=== PATIENT | female | born 1990 | race Caucasian/White ===

== ENCOUNTER 2018-01-22 01:15 | Inpatient (IN) | payer MEDICAID ==
[2018-01-22] MEDS ORDERED: LACTATED RINGERS 1,000 ML IV ONE ×4 (01:34→05:52)
[2018-01-22] MEDS ORDERED: OXYTOCIN/SODIUM CHLORIDE 500 ML IV ONE ×2 (01:34→03:52)
[2018-01-22] MEDS ORDERED: SODIUM CHLORIDE FLUSH 0.9% 10 ML SYRINGE ONE ×2 (01:35→11:23)
[2018-01-22] MEDS ORDERED: SODIUM CHLORIDE FLUSH 0.9% 10 ML SYRINGE IVP PRN (01:37)
--- NOTE | 2018-01-22 01:47 | HISTORY & PHYSICAL EXAMINATION ---
Admit History - Instructions Match-[employer] [place]/Slash: -Left hand click circles element as positive or present. -Right hand click slashes element as negative or not present. - Visit Reason Visit Reason: Contractions - : 8 Parity: 3 Premature: 1 Ectopic: 0 : 5 Care: positive: [facility] Risk/History: positive: labor <37 weeks Complications This : positive: None Smoking Status: Never smoker - Mother's Labs Mother's Blood Type: positive: A Mother's RH: positive: Positive GBS: positive: Group B Step Negative Rubella Status: positive: Immune Meds/Allgy - Home Medications Home Medications: Ambulatory Orders Medication Instructions Recorded Confirmed Amoxicillin 500 mg PO TID 10 Days capsule 08/17/15 Anxiety Med 08/17/15 Depression Med 08/17/15 predniSONE [Deltasone] 40 mg PO DAILY 5 Days tablet 08/17/15 - Allergies Allergies/Adverse Reactions: Allergies Allergy/AdvReac Type Severity Reaction Status Date / Time Sulfa (Sulfonamide Allergy Severe Rash Verified 06/25/13 09:27 Antibiotics) Review of Systems - Constitutional Constitutional: reports: Fatigue. denies: Fever, Chills - Cardiovascular Cariovascular: denies: Irregular heart rate, Palpitations, Chest pain, Edema - Respiratory Respiratory: denies: Cough, Wheezing, SOB at rest, SOB with exertion - Gastrointestinal Gastrointestinal: reports: Abdominal pain (uterine contractions x2 hours). denies: Constipation, Diarrhea, Change in bowel habits, Nausea, Vomiting - Genitourinary Genitourinary: reports: Frequency, Urgency. denies: Dysuria, Hematuria - Musculoskeletal Musculoskeletal: denies: Muscle pain, Back pain, Muscle aches - Integumentary Integumentary: denies: Rash, Pruritis, Lesions - Neurological Neurological: denies: General weakness, Focal weakness, Headache, Dizziness, Numbness, Abnormal gait - Psychiatric Psychiatric: denies: Depression, Anxiety - All Other Systems All Other Systems: reports: Reviewed and negative Physical - Abdominal Exam Contraction Frequency (min/apart): 2 Contraction Intensity: positive: Mild to moderate Uterine Resting Tone: positive: Soft - Monitoring Heart Rate Baseline: 135 Strip Review: positive: Category I - Presentation Presentation: positive: Vertex - Vaginal Exam Membranes: positive: Membranes ruptured Dilation (in cm): 10 Effacement (%): 100 Station: positive: 0 (per RN) Cervical Position: positive: Anterior - Speculum Exam Speculum Exam Performed: positive: No Findings: positive: Gross leak - Other Notes Labor Progress Note/Additional Text: Ada Pompa is a 27 y/o who presents w/ complaint of intense uterine contractions & LOF x2 hours. She has a hx of precipitous deliveries & a hx of PROM w/ PTD x1. She has been receiving care intermittently secondary to social dysfunction, but she has gotten care consistently from 30 weeks until now. Her ANGEL by first trimester US is 01/31/2018. She denies any complications during this & none are reflected in the records received from [facility] , where she has received the majority of her care. She denies significant medical hx. Her early chart was reviewed Reviewed chart: Records from [facility]. , LMP 02/23/2017, ANGEL 01/31/2018 (U/S). A pos. Visits 14w2d, 108/60. 08/31/2017 18w1d, 112/72. PMH: Anemia, depression. PSH: Foot. G6, TAB 1, Full term 3, SAB 2, living 3. 06/30/2017 U/S: LMP 04/15/2017 with EGA 10w6d, EDC 01/20/2018. U/S: EGA 9w2d, EDC 01/31/2018. CRL 2.53 cm, cervix length 4.08 cm. 06/30/2017 visit for confirmation of . Unintended . H/O 3 vaginal del. First PPROM at 34 wks. Induced, 14 hour labor with distress. born without a pulse and resuscitated. Baby 2 weeks in NICU; septic from chorio but not certain. 2nd preg complicated by PTL at 36 wks. PROM and delivered 45 min later. 3rd preg term vag del at 37 wks after spontaneous labor. No supplemental PG in any pregnancies. PMH: Depression managed without meds. Change EDC to 01/31/2018 based on U/S. 06/30/2017 GC/CT neg. 08/03/2017 labs: WBC 9.5, H/H 11.3/33.8, PLT 261, Ab screen neg, A pos, RPR NR, Hep B neg, rub imm, HIV NR. QUAD neg x 3. PMH: depression w/o medication PSH: d&C, wisdom teeth, ORIF OBhx: x3, 1 PTD, largest 8#2oz, denies hx of PPH, hx chorio, pt reports she was septic s/p first delivery 10 years ago; TAB x1, SAB x2, all first trimester & w/o complication GYNhx: Hx HPV, Hx chlamydia, Hx trichomonas, most recent pap NILM per pt, gc/ct neg this preg SocHx: unemployed, unpartnered, supported by her mother, Haydee, who is present in the room; denies drugs/etoh/tobacco PE: GEN: AAOx3, NAD WA gravid female HEENT: Grossly normocephalic, atraumatic RESP: Lungs b/l CTA t/o CARDIAC: RRR nls1s2, no murmur ABD: gravid, frequent uterine contractions, strong, fetus longitudinal, EFW 7#, cephalic presentation : No lesion, LOF, CAF SVE per RN: 10/100/0 MS: FROM t/o, no deformity SKIN: warm, well-perfused, c/d/i, no lesion, multiple tattoos NEURO: no focal deficit PSYCH: Moderately agitated secondary to discomfort, limited conversation, poor historian Plan for Labor - Plan For Labor I expect patient to be DC'd or transferred within 96 hours.: Yes Plan for Labor: 1. Admit 2. Admit labs, IV insert 3. Nitrous per pt request for analgesia/anxiolysis 4. UTOX, Cord tox 5. Anticipate
[2018-01-22] MEDS ORDERED: LACTATED RINGERS 1,000 ML IV SCH (02:00)
[2018-01-22 02:12] LABS: BASOPHILS # (AUTO) 0.1 10^3/uL (0.0-0.1); BASOPHILS % (AUTO) 0.6 %; EOSINOPHILS # (AUTO) 0.1 10^3/uL (0.0-0.7); EOSINOPHILS % (AUTO) 0.7 %; HGB - HEMOGLOBIN 12.6 g/dL (12.0-16.0); LYMPHOCYTES # (AUTO) 2.5 10^3/uL (1.5-3.5); LYMPHOCYTES % (AUTO) 24.2 %; MEAN CORPUSCULAR HGB CONC 34.4 g/dL (32.0-36.0); MEAN CORPUSCULAR VOLUME 87.2 fL (81.0-99.0); MEAN PLATELET VOLUME 10.1 fL (7.9-10.8); MONOCYTES # (AUTO) 0.8 10^3/uL (0.0-1.0); MONOCYTES % (AUTO) 7.6 %; NEUTROPHILS # (AUTO) 6.9 10^3/uL (1.5-6.6); NEUTROPHILS % (AUTO) 66.9 %; PLT - PLATELET COUNT 221 10^3/uL (130-450); RED BLOOD COUNT 4.19 10^6/uL (4.20-5.40); RED CELL DISTRIBUTION WIDTH 14.9 % (12.0-15.0); WHITE BLOOD COUNT 10.3 x10^3/uL (4.8-10.8)
[2018-01-22 02:33] LABS: MUDS CUTOFF CONCENTRATIONS CUTOFF CONC BELOW:
[2018-01-22 02:36] LABS: BILIRUBIN,URINE NEGATIVE (NEGATIVE); GLUCOSE, URINE (UA) NEGATIVE (NEGATIVE); KETONES,URINE (UA) NEGATIVE (NEGATIVE); LEUKOCYTE ESTERASE, URINE NEGATIVE (NEGATIVE); NITRITE,URINE NEGATIVE (NEGATIVE); OCCULT BLOOD,URINE NEGATIVE (NEGATIVE); PROTEIN,URINE NEGATIVE (NEGATIVE); UROBILINOGEN,URINE 0.2 (NORMAL) E.U./dL (NORMAL)
[2018-01-22 02:54] LABS: AMPHETAMINE SCREEN,URINE NEGATIVE (NEGATIVE); BACTERIA,URINE None Seen /HPF (None Seen); BENZODIAZEPINES SCREEN, URINE NEGATIVE (NEGATIVE); CLARITY,URINE CLEAR (CLEAR); COCAINE SCREEN URINE NEGATIVE (NEGATIVE); METHADONE SCREEN, URINE NEGATIVE (NEGATIVE); METHAMPHETAMINES SCREEN, URINE NEGATIVE (NEGATIVE); OPIATE SCREEN, URINE NEGATIVE (NEGATIVE); OXYCODONE SCREEN, URINE NEGATIVE (NEGATIVE); PROPOXYPHENE SCREEN, URINE NEGATIVE (NEGATIVE); RBC,URINE None Seen /HPF (0-5); SQUAMOUS EPITHELIAL CELL,UR FEW Squamous (<= Few); TRICYCLIC ANTIDEPRESSANT,URINE NEGATIVE (NEGATIVE)
[2018-01-22] MEDS ORDERED: HYDROCORTISONE 1% CREAM 28 GM TUBE PR PRN (03:11)
[2018-01-22] MEDS ORDERED: HYDROCORTISONE/PRAMOXINE 10 GM PR PRN (03:11)
[2018-01-22] MEDS ORDERED: WITCH HAZEL/GLYCERIN 1 EACH MED..PAD TOP PRN (03:11)
[2018-01-22] MEDS ORDERED: NITROGLYCERIN SL 0.4 MG TABLET SL PRN (03:11)
[2018-01-22] MEDS ORDERED: OXYTOCIN/SODIUM CHLORIDE 250 ML IV ONE (03:11)
[2018-01-22] MEDS ORDERED: oxyCODONE 5 MG TABLET PO PRN (03:11)
[2018-01-22] MEDS ORDERED: MAGNESIUM HYDROXIDE 2,400 MG/30 ML UDC PO PRN (03:11)
[2018-01-22] MEDS ORDERED: ceFAZolin 3 GM in SODIUM CHLORIDE 0.9% 100ML 100 ML IV ONE (03:14)
--- NOTE | 2018-01-22 03:35 | DELIVERY NOTE ---
Delivery Note - Labor Labor: positive: Spontaneous - Delivery Method Delivery Method: positive: Spontaneous vaginal delivery - Presentation Presentation: positive: Vertex, DEEPTI - right occiput anterior - Nuchal Cord Nuchal Cord: positive: None - Anesthetic Anesthetic Type: - Amniotic Fluid Description Amniotic Fluid Description: positive: Clear - Episiotomy Type Episiotomy Type: positive: None - Laceration Laceration: positive: None - Delivery Outcome Delivery Outcome: positive: Livebirth - [place] : positive: Placed in direct skin contact with mother, Stimulated, Hooker used - Cord Cord: positive: 3 vessels - Placenta Placenta: positive: Retained - Estimated Blood Loss Estimated Blood Loss (in cc): 350 - Post Delivery Events Post Delivery Events: positive: Retained placenta - Delivery Comments (Free Text/Narrative) Delivery Comments (Free Text/Narrative): Ada Pompa is a 27 y/o [id number] who presented @ 38w5d gestation by first trimester US in active, spontaneous labor. She had an uncomplicated course w/ the exception of some sporadic care secondary to relocation. She presented @ 9cm dilated w/ SROM @ 00:00. She progressed to complete dilatation @ 0200, for a total first stage duration of 2 hours. She began pushing w/ spontaneous urge @ 02:10 & delivered a viable female vaginally in DEEPTI position over an intact perineum @ 0240, for a total 2nd stage duration of 30 minutes. FHTs monitored electronically t/o & consistently cat I. vigorous w/ spontaneous, lusty cry. Placed to maternal abdomen for drying/stim. Delayed cord clamping until cessation of pulsation, then cord clamped x2 by cnm, cut by pt's daughter. 3vc noted. Cord blood obtained. Cord segment obtained for cord tox. Active management of the 3rd stage w/ Pitocin in IV fluids. Attempted manual extraction @ 30 minutes s/p delivery w/o success secondary to narrow cervical lumen. Nitroglycerin 0.4mg SL administered & attempted manual extraction again @ 45 minutes s/p delivery w/o success secondary to patient discomfort & persistent placental adherence. Pt utilized self-administered nitrous oxide w/ inadequate pain control. No improvement w/ IV fentanyl. Reviewed clinical scenario w/ pt & indication for operative intervention to facilitate placental extraction. Dr. Alecia MD, MANUFACTURING QUALITY INSPECTOR notified of clinical scenario & requested to present for surgical intervention. Anesthesia & OR team notified. Infant apgars 9/9, weight 9#4oz. Plans to breastfeed.
[2018-01-22] MEDS ORDERED: fentaNYL 100 MCG/2 ML VIAL ONE (03:50)
[2018-01-22] MEDS ORDERED: METHYLERGONOVINE 0.2 MG/ML AMP PO SCH (04:00)
--- NOTE | 2018-01-22 04:01 | PROVIDER PROGRESS NOTE ---
Subjective - Prog Note Date Prog Note Date: 01/22/18 Prog Note Time: 03:57 - Subjective Pt reports feeling: Worse Objective - Vital Signs/Intake & Output Reviewed Vital Signs: Yes Vital Signs: Vital Signs x48h Temp Pulse Resp BP Pulse Ox 01/22/18 01:55 97.8 C H 93 20 109/73 100 - Lab Results Fish Bones: 01/22/18 01:45 Other Labs: Lab Results x24hrs 01/22/18 01/22/18 01/22/18 Range/Units 01:45 01:38 01:38 WBC 10.3 (4.8-10.8) x10^3/uL RBC 4.19 L (4.20-5.40) 10^6/uL Hgb 12.6 (12.0-16.0) g/dL Hct 36.6 L (37.0-47.0) % MCV 87.2 (81.0-99.0) fL MCH 30.0 (27.0-31.0) pg MCHC 34.4 (32.0-36.0) g/dL RDW 14.9 (12.0-15.0) % Plt Count 221 (130-450) 10^3/uL MPV 10.1 (7.9-10.8) fL Neut # (Auto) 6.9 H (1.5-6.6) 10^3/uL Lymph # (Auto) 2.5 (1.5-3.5) 10^3/uL [place] # (Auto) 0.8 (0.0-1.0) 10^3/uL Eos # (Auto) 0.1 (0.0-0.7) 10^3/uL Baso # (Auto) 0.1 (0.0-0.1) 10^3/uL Absolute Nucleated RBC 0.00 x10^3/uL Nucleated RBC % 0.0 /100WBC Urine Color YELLOW Urine Clarity CLEAR (CLEAR) Urine pH 7.0 (5.0-7.5) PH Ur Specific [employer] 1.010 (1.002-1.030) Urine Protein NEGATIVE (NEGATIVE) mg/dL Urine Glucose (UA) NEGATIVE (NEGATIVE) mg/dL Urine Ketones NEGATIVE (NEGATIVE) mg/dL Urine Occult Blood NEGATIVE (NEGATIVE) Urine Nitrite NEGATIVE (NEGATIVE) Urine Bilirubin NEGATIVE (NEGATIVE) Urine Urobilinogen 0.2 (NORMAL) (NORMAL) E.U./dL Ur Leukocyte Esterase NEGATIVE (NEGATIVE) Urine RBC None Seen (0-5) /HPF Urine WBC 4-5 (0-5) /HPF Ur Squamous Epith Cells FEW Squamous (<= Few) Urine Bacteria None Seen (None Seen) /HPF Urine Culture Comments NOT INDICATED Urine Opiates Screen NEGATIVE (NEGATIVE) Ur Oxycodone Screen NEGATIVE (NEGATIVE) Urine Methadone Screen NEGATIVE (NEGATIVE) Ur Propoxyphene Screen NEGATIVE (NEGATIVE) Ur Barbiturates Screen NEGATIVE (NEGATIVE) Ur Tricyclics Screen NEGATIVE (NEGATIVE) Ur Phencyclidine Scrn NEGATIVE (NEGATIVE) Ur Amphetamine Screen NEGATIVE (NEGATIVE) U Methamphetamines Scrn NEGATIVE (NEGATIVE) U Benzodiazepines Scrn NEGATIVE (NEGATIVE) Urine Cocaine Screen NEGATIVE (NEGATIVE) U Cannabinoids Screen NEGATIVE (NEGATIVE) Assessment/Plan - Problem List (1) Retained placenta Impression: Placenta delivered manually following large amount of profuse vaginal bleeding @ 0355, for a total 3rd stage duration of 1 hour, 15 minutes, appears intact, but able to palpate adherent debris w/ manual sweep of uterus & pt's pain too poorly controlled w/ use of inhaled nitrous oxide & IV fentanyl to accurately ensure empty uterine cavity w/o retained products. Methergine 0.2mg IM x1 administered & misoprostol 800mcg SL administered, bimanual compression performed to firm LUDA, 2nd IV site initiated, bolus IV fluids & 2nd bag of 30Units of Pitocin in NS hung; stat CBC drawn & crossmatched 2 units of PRBCs for standby. Dr. Alston to bedside to consent patient for D&C. Qualifiers: Retained placenta detail: portions of placenta Qualified Code(s): O73.1 - Retained portions of placenta and membranes, without hemorrhage (2) hemorrhage Impression: presently stable s/p uterotonics & bimanual compression, manual extraction of placenta w/ likely retained fragments; EBL presently 1500mL Qualifiers: hemorrhage type: third-stage Qualified Code(s): O72.0 - Third- stage hemorrhage
[2018-01-22] MEDS ORDERED: METHYLERGONOVINE 0.2 MG/ML AMP IM ONE (04:02)
[2018-01-22] MEDS ORDERED: fentaNYL 100 MCG/2 ML VIAL IVP PRN (04:03)
[2018-01-22] MEDS ORDERED: miSOPROStol 200 MCG TABLET SL ONE (04:03)
[2018-01-22 04:06] LABS: BASOPHILS # (AUTO) 0.1 10^3/uL (0.0-0.1); BASOPHILS % (AUTO) 0.7 %; EOSINOPHILS % (AUTO) 0.2 %; HGB - HEMOGLOBIN 11.3 g/dL (12.0-16.0); LYMPHOCYTES % (AUTO) 15.5 %; MEAN CORPUSCULAR HEMOGLOBIN 29.6 pg (27.0-31.0); MEAN CORPUSCULAR HGB CONC 33.5 g/dL (32.0-36.0); MEAN CORPUSCULAR VOLUME 88.2 fL (81.0-99.0); MEAN PLATELET VOLUME 9.8 fL (7.9-10.8); MONOCYTES # (AUTO) 0.9 10^3/uL (0.0-1.0); MONOCYTES % (AUTO) 6.8 %; NEUTROPHILS # (AUTO) 9.9 10^3/uL (1.5-6.6); NEUTROPHILS % (AUTO) 76.8 %; PLT - PLATELET COUNT 201 10^3/uL (130-450); RED BLOOD COUNT 3.82 10^6/uL (4.20-5.40); WHITE BLOOD COUNT 12.9 x10^3/uL (4.8-10.8)
[2018-01-22] MEDS ORDERED: LACTATED RINGERS 500 ML IV ONE (04:20)
--- NOTE | 2018-01-22 04:28 | OPERATIVE REPORT ---
Operative Report - General Admit Date: 01/22/18 Pre-Op Diagnosis: Retained placental fragments; Associated with bleeding Procedure Performed: Curettage and extraction of placental fragments Post Op Diagnosis: Same as above - Procedure Note Primary Surgeon: John Alston MD, FACOG Anesthesia Provider: Brad Faust MD Anesthesia Technique: Spinal Pathology: Placental specimens sent IV Fluids (mL): 600 Estimated Blood Loss (mL): 200 Urine Output (mL): 150 - Other Other Information/Narrative: At 0325, I was called by Td Estevez CNA informed her patient had a retained placenta is not resolved despite her best efforts over the last hour and that the patient is currently bleeding. Upon my arrival the placenta was in the process of being spontaneously expelled. It was somewhat macerated but appeared mostly intact. On palpation of the uterine anterior there were still fragments present. In order to provide complete assessment and removal of the retained products a curettage with exam under anesthesia was conducted. Exam under anesthesia found the uterus to be firm and 17-16 weeks size. The cervix was completely intact and there were no vaginal lacerations. Curettage revealed yielded a small amount of placental fragments and membranes material. The bleeding markedly improved. Due to the reported 1500 cc blood loss during delivery patient will have serial CBCs. She is currently on Pitocin drip. She received misoprostol 800 mcg in the delivery room.
[2018-01-22] MEDS ORDERED: miSOPROStol 200 MCG TABLET ONE (05:00)
[2018-01-22] MEDS ORDERED: miSOPROStol 100 MCG TABLET ONE (05:13)
[2018-01-22 06:23] LABS: HGB - HEMOGLOBIN 10.6 g/dL (12.0-16.0); MEAN CORPUSCULAR HEMOGLOBIN 29.7 pg (27.0-31.0); MEAN CORPUSCULAR HGB CONC 34.4 g/dL (32.0-36.0); MEAN CORPUSCULAR VOLUME 86.4 fL (81.0-99.0); RED BLOOD COUNT 3.57 10^6/uL (4.20-5.40); RED CELL DISTRIBUTION WIDTH 14.9 % (12.0-15.0); WHITE BLOOD COUNT 22.7 x10^3/uL (4.8-10.8)
[2018-01-22] MEDS: CELECOXIB 100 MG CAPSULE PO SCH ×2 (08:24→21:04)
[2018-01-22] MEDS: DOCUSATE SODIUM 100 MG CAPSULE PO SCH ×2 (08:24→21:04)
[2018-01-22] MEDS: ACETAMINOPHEN 500 MG TABLET PO SCH ×2 (08:24→16:28)
[2018-01-22] MEDS ORDERED: SODIUM CHLORIDE FLUSH 0.9% 10 ML SYRINGE IVP SCH (09:00)
[2018-01-22 10:32] LABS: BASOPHILS # (AUTO) 0.1 10^3/uL (0.0-0.1); BASOPHILS % (AUTO) 0.5 %; HGB - HEMOGLOBIN 9.4 g/dL (12.0-16.0); LYMPHOCYTES # (AUTO) 1.6 10^3/uL (1.5-3.5); LYMPHOCYTES % (AUTO) 11.1 %; MEAN CORPUSCULAR HEMOGLOBIN 29.4 pg (27.0-31.0); MEAN CORPUSCULAR HGB CONC 33.5 g/dL (32.0-36.0); MEAN CORPUSCULAR VOLUME 87.8 fL (81.0-99.0); MEAN PLATELET VOLUME 9.9 fL (7.9-10.8); MONOCYTES # (AUTO) 1.1 10^3/uL (0.0-1.0); MONOCYTES % (AUTO) 7.5 %; NEUTROPHILS # (AUTO) 11.5 10^3/uL (1.5-6.6); NEUTROPHILS % (AUTO) 80.9 %; PLT - PLATELET COUNT 154 10^3/uL (130-450); WHITE BLOOD COUNT 14.2 x10^3/uL (4.8-10.8)
--- NOTE | 2018-01-22 15:17 | PROVIDER PROGRESS NOTE ---
Subjective - Prog Note Date Prog Note Date: 01/22/18 Prog Note Time: 15:00 - Subjective Pt reports feeling: Improved Subjective: Ada is very tired but reports that she is feeling generally well, just exhausted. She states that her pain is presently well-controlled. She is ambulating w/o dizziness or lightheadedness & she denies any SUMNER or SOB. She reports minimal lochia rubra. She is passing flatus & tolerating a regular diet. She is exclusively w/o difficulty & reports 3 previously successful experiences. She is not interested in discussing contraceptive options @ this time & does not know when she will return to work. She reports that she is very tired & would like simply to sleep. Objective - Vital Signs/Intake & Output Reviewed Vital Signs: Yes Vital Signs: Vital Signs x48h Temp Pulse Resp BP Pulse Ox 01/22/18 12:00 37.1 C 66 16 106/54 L 98 01/22/18 09:05 38.5 C H 01/22/18 08:00 38.7 C H 74 14 125/69 95 01/22/18 07:20 37.3 C 84 20 123/65 98 Intake & Output: Intake & Output 01/19/18 01/20/18 01/21/18 01/22/18 23:59 23:59 23:59 23:59 Output Total 800 Balance -800 - Objective General Appearance: positive: No acute distress, Alert Respiratory: positive: Chest non-tender, No respiratory distress, Breath sounds nml Cardiovascular: positive: Regular rate & rhythm, No murmur Abdomen: positive: Non-tender, Other (FF U-2) Skin: positive: Color nml, No rash, Warm, Dry. negative: Pallor Extremities: positive: Non-tender, Full ROM, Nml appearance, No pedal edema. negative: Calf tenderness, Suyapa's sign/cords Neurologic/Psychiatric: positive: Oriented x3, CN's nml (2-12), Motor nml, Sensation nml, Mood/affect nml Comments/Other: breasts b/l s, nt; nipples b/l intact & everted; colostrum readily expressible perineum intact w/o erythema/edema/ecchymosis, minimal lochia rubra - Lab Results Fish Bones: 01/22/18 10:15 Other Labs: Lab Results x24hrs 01/22/18 01/22/18 01/22/18 Range/Units 10:15 06:15 03:56 WBC 14.2 H 22.7 H 12.9 H (4.8-10.8) x10^3/uL RBC 3.20 L 3.57 L 3.82 L (4.20-5.40) 10^6/uL Hgb 9.4 L 10.6 L 11.3 L (12.0-16.0) g/dL Hct 28.1 L 30.8 L 33.7 L (37.0-47.0) % MCV 87.8 86.4 88.2 (81.0-99.0) fL MCH 29.4 29.7 29.6 (27.0-31.0) pg MCHC 33.5 34.4 33.5 (32.0-36.0) g/dL RDW 15.0 14.9 15.0 (12.0-15.0) % Plt Count 154 188 201 (130-450) 10^3/uL MPV 9.9 10.0 9.8 (7.9-10.8) fL Neut # (Auto) 11.5 H 9.9 H (1.5-6.6) 10^3/uL Lymph # (Auto) 1.6 2.0 (1.5-3.5) 10^3/uL [place] # (Auto) 1.1 H 0.9 (0.0-1.0) 10^3/uL Eos # (Auto) 0.0 0.0 (0.0-0.7) 10^3/uL Baso # (Auto) 0.1 0.1 (0.0-0.1) 10^3/uL Absolute Nucleated RBC 0.00 0.00 x10^3/uL Nucleated RBC % 0.0 0.0 /100WBC Urine Color Urine Clarity (CLEAR) Urine pH (5.0-7.5) PH Ur Specific [place] (1.002-1.030) Urine Protein (NEGATIVE) mg/dL Urine Glucose (UA) (NEGATIVE) mg/dL Urine Ketones (NEGATIVE) mg/dL Urine Occult Blood (NEGATIVE) Urine Nitrite (NEGATIVE) Urine Bilirubin (NEGATIVE) Urine Urobilinogen (NORMAL) E.U./dL Ur Leukocyte Esterase (NEGATIVE) Urine RBC (0-5) /HPF Urine WBC (0-5) /HPF Ur Squamous Epith Cells (<= Few) Urine Bacteria (None Seen) /HPF Urine Culture Comments Urine Opiates Screen (NEGATIVE) Ur Oxycodone Screen (NEGATIVE) Urine Methadone Screen (NEGATIVE) Ur Propoxyphene Screen (NEGATIVE) Ur Barbiturates Screen (NEGATIVE) Ur Tricyclics Screen (NEGATIVE) Ur Phencyclidine Scrn (NEGATIVE) Ur Amphetamine Screen (NEGATIVE) U Methamphetamines Scrn (NEGATIVE) U Benzodiazepines Scrn (NEGATIVE) Urine Cocaine Screen (NEGATIVE) U Cannabinoids Screen (NEGATIVE) Blood Type Antibody Screen Crossmatch IS Only 01/22/18 01/22/18 01/22/18 Range/Units 01:45 01:45 01:38 WBC 10.3 (4.8-10.8) x10^3/uL RBC 4.19 L (4.20-5.40) 10^6/uL Hgb 12.6 (12.0-16.0) g/dL Hct 36.6 L (37.0-47.0) % MCV 87.2 (81.0-99.0) fL MCH 30.0 (27.0-31.0) pg MCHC 34.4 (32.0-36.0) g/dL RDW 14.9 (12.0-15.0) % Plt Count 221 (130-450) 10^3/uL MPV 10.1 (7.9-10.8) fL Neut # (Auto) 6.9 H (1.5-6.6) 10^3/uL Lymph # (Auto) 2.5 (1.5-3.5) 10^3/uL [place] # (Auto) 0.8 (0.0-1.0) 10^3/uL Eos # (Auto) 0.1 (0.0-0.7) 10^3/uL Baso # (Auto) 0.1 (0.0-0.1) 10^3/uL Absolute Nucleated RBC 0.00 x10^3/uL Nucleated RBC % 0.0 /100WBC Urine Color YELLOW Urine Clarity CLEAR (CLEAR) Urine pH 7.0 (5.0-7.5) PH Ur Specific [place] 1.010 (1.002-1.030) Urine Protein NEGATIVE (NEGATIVE) mg/dL Urine Glucose (UA) NEGATIVE (NEGATIVE) mg/dL Urine Ketones NEGATIVE (NEGATIVE) mg/dL Urine Occult Blood NEGATIVE (NEGATIVE) Urine Nitrite NEGATIVE (NEGATIVE) Urine Bilirubin NEGATIVE (NEGATIVE) Urine Urobilinogen 0.2 (NORMAL) (NORMAL) E.U./dL Ur Leukocyte Esterase NEGATIVE (NEGATIVE) Urine RBC None Seen (0-5) /HPF Urine WBC 4-5 (0-5) /HPF Ur Squamous Epith Cells FEW Squamous (<= Few) Urine Bacteria None Seen (None Seen) /HPF Urine Culture Comments NOT INDICATED Urine Opiates Screen (NEGATIVE) Ur Oxycodone Screen (NEGATIVE) Urine Methadone Screen (NEGATIVE) Ur Propoxyphene Screen (NEGATIVE) Ur Barbiturates Screen (NEGATIVE) Ur Tricyclics Screen (NEGATIVE) Ur Phencyclidine Scrn (NEGATIVE) Ur Amphetamine Screen (NEGATIVE) U Methamphetamines Scrn (NEGATIVE) U Benzodiazepines Scrn (NEGATIVE) Urine Cocaine Screen (NEGATIVE) U Cannabinoids Screen (NEGATIVE) Blood Type A POSITIVE Antibody Screen NEGATIVE Crossmatch IS Only See Detail 01/22/18 Range/Units 01:38 WBC (4.8-10.8) x10^3/uL RBC (4.20-5.40) 10^6/uL Hgb (12.0-16.0) g/dL Hct (37.0-47.0) % MCV (81.0-99.0) fL MCH (27.0-31.0) pg MCHC (32.0-36.0) g/dL RDW (12.0-15.0) % Plt Count (130-450) 10^3/uL MPV (7.9-10.8) fL Neut # (Auto) (1.5-6.6) 10^3/uL Lymph # (Auto) (1.5-3.5) 10^3/uL [place] # (Auto) (0.0-1.0) 10^3/uL Eos # (Auto) (0.0-0.7) 10^3/uL Baso # (Auto) (0.0-0.1) 10^3/uL Absolute Nucleated RBC x10^3/uL Nucleated RBC % /100WBC Urine Color Urine Clarity (CLEAR) Urine pH (5.0-7.5) PH Ur Specific [place] (1.002-1.030) Urine Protein (NEGATIVE) mg/dL Urine Glucose (UA) (NEGATIVE) mg/dL Urine Ketones (NEGATIVE) mg/dL Urine Occult Blood (NEGATIVE) Urine Nitrite (NEGATIVE) Urine Bilirubin (NEGATIVE) Urine Urobilinogen (NORMAL) E.U./dL Ur Leukocyte Esterase (NEGATIVE) Urine RBC (0-5) /HPF Urine WBC (0-5) /HPF Ur Squamous Epith Cells (<= Few) Urine Bacteria (None Seen) /HPF Urine Culture Comments Urine Opiates Screen NEGATIVE (NEGATIVE) Ur Oxycodone Screen NEGATIVE (NEGATIVE) Urine Methadone Screen NEGATIVE (NEGATIVE) Ur Propoxyphene Screen NEGATIVE (NEGATIVE) Ur Barbiturates Screen NEGATIVE (NEGATIVE) Ur Tricyclics Screen NEGATIVE (NEGATIVE) Ur Phencyclidine Scrn NEGATIVE (NEGATIVE) Ur Amphetamine Screen NEGATIVE (NEGATIVE) U Methamphetamines Scrn NEGATIVE (NEGATIVE) U Benzodiazepines Scrn NEGATIVE (NEGATIVE) Urine Cocaine Screen NEGATIVE (NEGATIVE) U Cannabinoids Screen NEGATIVE (NEGATIVE) Blood Type Antibody Screen Crossmatch IS Only ABX Reporting Has patient been on IV antibiotics over the past 48 hours?: Yes Assessment/Plan - Problem List (1) Retained placenta Impression: resolved s/p manual extraction; d&c for retained fragments & PPH thereafter; bleeding presently minimal, h/h down to 9.4/28.1 from 12.6/36.6, asymptomatic & hemodynamically stable plan repeat cbc this afternoon po iron supplementation encouraged adequate hydration Qualifiers: Retained placenta detail: portions of placenta Qualified Code(s): O73.1 - Retained portions of placenta and membranes, without hemorrhage (2) hemorrhage Impression: esolved s/p manual extraction; d&c for retained fragments & PPH thereafter; bleeding presently minimal, h/h down to 9.4/28.1 from 12.6/36.6, asymptomatic & hemodynamically stable plan repeat cbc this afternoon po iron supplementation encouraged adequate hydration Qualifiers: hemorrhage type: third-stage Qualified Code(s): O72.0 - Third- stage hemorrhage (3) (normal spontaneous vaginal delivery) Impression: 27 y/o [id number] s/p 8//18 w/ retained placenta w/ manual extraction & PPH ~ 1500mL EBL w/ d&c in immediate pp period Normal uterine involution Adequate pain control w/ opioid analgesia well Mild anemia secondary to acute blood loss P: 1. reviewed delivery events & 3rd stage events & implications 2. CBC this evening & tomorrow am to ensure ongoing hemodynamic stability, ongoing careful VS monitoring 3. po iron supplementation, transfusion if H/H continues to trend downward 4. support provided & to continue in ongoing fashion 5. continue routine pp care 6. anticipate d/c home on PPD#2
[2018-01-22 15:28] LABS: BASOPHILS % (AUTO) 0.5 %; EOSINOPHILS % (AUTO) 0.2 %; HGB - HEMOGLOBIN 9.2 g/dL (12.0-16.0); LYMPHOCYTES # (AUTO) 1.8 10^3/uL (1.5-3.5); LYMPHOCYTES % (AUTO) 18.7 %; MEAN CORPUSCULAR HEMOGLOBIN 29.8 pg (27.0-31.0); MEAN CORPUSCULAR VOLUME 87.9 fL (81.0-99.0); MEAN PLATELET VOLUME 9.7 fL (7.9-10.8); MONOCYTES # (AUTO) 1.1 10^3/uL (0.0-1.0); MONOCYTES % (AUTO) 11.8 %; NEUTROPHILS # (AUTO) 6.5 10^3/uL (1.5-6.6); NEUTROPHILS % (AUTO) 68.8 %; PLT - PLATELET COUNT 160 10^3/uL (130-450); RED BLOOD COUNT 3.08 10^6/uL (4.20-5.40); RED CELL DISTRIBUTION WIDTH 15.3 % (12.0-15.0); WHITE BLOOD COUNT 9.4 x10^3/uL (4.8-10.8)
--- NOTE | 2018-01-22 17:14 | OPERATIVE REPORT ---
DATE OF SERVICE: 01/22/2018 Physician: John Alston MD PREOPERATIVE DIAGNOSIS: Retained placental fragments; associated heavy bleeding/hemorrhage. POSTOPERATIVE DIAGNOSIS: Retained placental fragments; associated heavy bleeding/hemorrhage. PROCEDURE: Curettage with exam under anesthesia. SURGEON: John Alston MD, FACOG, FICS ANESTHESIOLOGIST: Brad Marsh MD ANESTHESIA: Spinal. PATHOLOGY: Placental fragments and membranes sent. IV FLUIDS: 600 mL ESTIMATED BLOOD LOSS: 200 mL URINE: 150 mL (straight catheterization at the beginning of the procedure). DRAINS: None. COMPLICATIONS: None. FINDINGS 1. Exam of the external genitalia finds no lacerations or defects. Vagina was carefully inspected, and there are no lacerations. Cervix is completely intact. 2. Uterus is about 17 weeks' size, fairly firm. There was a small amount of placental fragment and membranes obtained by D and C. Bleeding rate subsided. TECHNIQUE: At 0325 hours, I was informed by telephone that patient had an uneventful vaginal delivery, except for retained placenta. The interval between the delivery was over 1 hour. Estimated blood loss was 1500. As I arrived in the room, placenta was in the process of being expelled. For the most part, the placenta seemed to be intact; however, there were palpable fragments of the uterine interior. I discussed need for curettage and exam under anesthesia with the patient. Wilson Estevez had obtained the consent. I reviewed the risks and benefits. Consent paperwork was signed. Patient was brought to the operating room and placed on the table in the sitting position. Spinal anesthetic was uneventfully placed by Dr. Marsh, and she was moved to the supine. After a short amount of time, she was moved to the high dorsal lithotomy [facility]. She was prepped and draped in a customary sterile fashion. Timeout briefing was done per protocol. Patient was straight catheterized of 150 mL of urine. Exam under anesthesia was conducted. The upper portions of the uterine cavity could not be palpated. The anterior cervical lip was grasped with a sponge ring forceps. A banjo curette was introduced into the uterine cavity and systematic curettage was done. This yielded a small amount of placental fragments. Specimen was sent to pathology. We observed bleeding for 10 minutes and ensured that it had subsided. Patient had already received Cytotec in the delivery suite. We continued Pitocin drip. At roughly 0400, her hemoglobin was 11.3 with a baseline of 12.6. Patient was hemodynamically stable. DISPOSITION: Patient will return to recovery on the floor. Serial hemoglobins will be done, 0900 and 1500. There are 2 units of packed red blood cells on reserve. Her vital signs will be closely monitored. Anticipate spinal will provide analgesia for the next 2 hours, after which we will continue with Celebrex and fentanyl as needed. TD: 01/22/2018 05:29 [id number]
[2018-01-23] MEDS: ACETAMINOPHEN 500 MG TABLET PO SCH ×3 (00:04→16:27)
[2018-01-23] MEDS ORDERED: OXYTOCIN 10 UNIT/ML VIAL IV ONE (05:15)
[2018-01-23 06:28] LABS: BASOPHILS # (AUTO) 0.1 10^3/uL (0.0-0.1); BASOPHILS % (AUTO) 0.8 %; EOSINOPHILS # (AUTO) 0.1 10^3/uL (0.0-0.7); EOSINOPHILS % (AUTO) 1.1 %; HGB - HEMOGLOBIN 9.1 g/dL (12.0-16.0); LYMPHOCYTES # (AUTO) 2.4 10^3/uL (1.5-3.5); LYMPHOCYTES % (AUTO) 28.5 %; MEAN CORPUSCULAR HEMOGLOBIN 29.4 pg (27.0-31.0); MEAN CORPUSCULAR HGB CONC 33.2 g/dL (32.0-36.0); MEAN CORPUSCULAR VOLUME 88.6 fL (81.0-99.0); MONOCYTES # (AUTO) 0.6 10^3/uL (0.0-1.0); MONOCYTES % (AUTO) 6.7 %; NEUTROPHILS # (AUTO) 5.4 10^3/uL (1.5-6.6); NEUTROPHILS % (AUTO) 62.9 %; PLT - PLATELET COUNT 160 10^3/uL (130-450); RED BLOOD COUNT 3.09 10^6/uL (4.20-5.40); RED CELL DISTRIBUTION WIDTH 15.2 % (12.0-15.0); WHITE BLOOD COUNT 8.5 x10^3/uL (4.8-10.8)
[2018-01-23] MEDS: FERROUS SULFATE 325 MG TABLET PO SCH (08:14)
[2018-01-23] MEDS: DOCUSATE SODIUM 100 MG CAPSULE PO SCH ×2 (08:14→21:01)
[2018-01-23] MEDS: CELECOXIB 100 MG CAPSULE PO SCH ×2 (08:55→21:01)
--- NOTE | 2018-01-23 12:41 | PROVIDER PROGRESS NOTE ---
Subjective - General Admit Date: 01/22/18 Procedure Date: 01/22/18 Post Op Days: 1 Procedure Performed: uterine exploration with D&C - Review of Systems General: positive: No symptoms (Pt notes pain 2/10. Passing flatus, tolerating regular diet.) HEENT: positive: No symptoms Pulmonary: positive: No symptoms Cardiovascular: positive: No symptoms All Other Systems: positive: Reviewed and negative Objective - Patient Data Reviewed Vital Signs: Yes Vital Signs: Vital Signs x48h Temp Pulse Resp BP Pulse Ox 01/23/18 08:52 37.0 C 65 16 101/51 L 98 01/23/18 05:36 36.9 C 80 20 118/49 L 100 Weight: Weight 01/21/18 01/22/18 01/23/18 23:59 23:59 23:59 Weight (kg) 65.771 kg Intake & Output: Intake and Output Totals x24h 01/21/18 01/22/18 01/23/18 23:59 23:59 23:59 Output Total 1200 Balance -1200 - Lab Results Lab Results: 01/23/18 05:56 Other Lab Results: Lab Results x24hrs 01/23/18 01/22/18 Range/Units 05:56 15:18 WBC 8.5 9.4 (4.8-10.8) x10^3/uL RBC 3.09 L 3.08 L (4.20-5.40) 10^6/uL Hgb 9.1 L 9.2 L (12.0-16.0) g/dL Hct 27.3 L 27.1 L (37.0-47.0) % MCV 88.6 87.9 (81.0-99.0) fL MCH 29.4 29.8 (27.0-31.0) pg MCHC 33.2 34.0 (32.0-36.0) g/dL RDW 15.2 H 15.3 H (12.0-15.0) % Plt Count 160 160 (130-450) 10^3/uL MPV 10.0 9.7 (7.9-10.8) fL Neut # (Auto) 5.4 6.5 (1.5-6.6) 10^3/uL Lymph # (Auto) 2.4 1.8 (1.5-3.5) 10^3/uL [place] # (Auto) 0.6 1.1 H (0.0-1.0) 10^3/uL Eos # (Auto) 0.1 0.0 (0.0-0.7) 10^3/uL Baso # (Auto) 0.1 0.0 (0.0-0.1) 10^3/uL Absolute Nucleated RBC 0.00 0.00 x10^3/uL Nucleated RBC % 0.0 0.0 /100WBC - Current Medications Current Medications: Current Medications Generic Name Dose Route Start Last Admin Trade Name Freq PRN Reason Stop Dose Admin Acetaminophen 1,000 mg 01/22/18 04:00 01/23/18 08:13 Tylenol PO 1,000 mg Q8H LETICIA Administration Celecoxib 200 mg 01/22/18 09:00 01/23/18 08:55 Celebrex PO 200 mg BID LETICIA Administration Docusate Sodium 100 mg 01/22/18 09:00 01/23/18 08:14 Colace 100mg Capsule PO 100 mg BID LETICIA Administration Ferrous Sulfate 325 mg 01/23/18 08:00 01/23/18 08:14 Feosol PO 325 mg DAILYWM LETICIA Administration Methylergonovine Maleate 0.2 mg 01/22/18 04:00 01/22/18 03:55 Methergine Inj PO 0.2 mg TID LETICIA Administration - Physical Exam General Appearance: positive: No acute distress, Alert Eyes Bilateral: positive: Normal inspection, PERRL Respiratory: positive: Chest non-tender, No respiratory distress, Breath sounds nml Cardiovascular: positive: Regular rate & rhythm, No murmur, No gallop Abdomen: positive: Non-tender, Nml bowel sounds, No distention, Mass (U-2) Extremities: negative: Pedal edema, Calf tenderness, Suyapa's sign/cords Impression/Plan - Problem List Problem List: POD #1. SP D&C for retained Placental tissue. mild anemia. no evidence of endomyometritis. Pt desires an additional day.
[2018-01-24] MEDS ORDERED: SODIUM CHLORIDE FLUSH 0.9% 10 ML SYRINGE ONE (02:03)
[2018-01-24 08:29] VITALS: BP 111/76
--- NOTE | 2018-01-24 08:42 | PROVIDER PROGRESS NOTE ---
Subjective - General Admit Date: 01/22/18 Procedure Date: 01/22/18 Post Op Days: 2 Procedure Performed: uterine exploration with D&C - Review of Systems General: positive: No symptoms (Pt notes pain 06/29. Passing flatus, tolerating regular diet. voiding) HEENT: positive: No symptoms Pulmonary: positive: No symptoms Cardiovascular: positive: No symptoms Genitourinary: positive: Other (uterus cramps with breast feeding) All Other Systems: positive: Reviewed and negative Objective - Patient Data Reviewed Vital Signs: Yes Vital Signs: Vital Signs x48h Temp Pulse Resp BP Pulse Ox 01/24/18 08:00 37.1 C 66 16 111/76 95 01/24/18 02:00 36.9 C 73 20 116/49 L 99 Weight: Weight 01/22/18 01/23/18 01/24/18 23:59 23:59 23:59 Weight (kg) 65.771 kg Intake & Output: Intake and Output Totals x24h 01/22/18 01/23/18 01/24/18 23:59 23:59 23:59 Output Total 1200 Balance -1200 - Lab Results Lab Results: 01/23/18 05:56 - Current Medications Current Medications: Current Medications Generic Name Dose Route Start Last Admin Trade Name Freq PRN Reason Stop Dose Admin Acetaminophen 1,000 mg 01/22/18 04:00 01/23/18 16:27 Tylenol PO 1,000 mg Q8H LETICIA Administration Celecoxib 200 mg 01/22/18 09:00 01/23/18 21:01 Celebrex PO 200 mg BID LETICIA Administration Docusate Sodium 100 mg 01/22/18 09:00 01/23/18 21:01 Colace 100mg Capsule PO 100 mg BID LETICIA Administration Ferrous Sulfate 325 mg 01/23/18 08:00 01/23/18 08:14 Feosol PO 325 mg DAILYWM LETICIA Administration Methylergonovine Maleate 0.2 mg 01/22/18 04:00 01/22/18 03:55 Methergine Inj PO 0.2 mg TID LETICIA Administration - Physical Exam General Appearance: positive: No acute distress, Alert Respiratory: positive: Chest non-tender, No respiratory distress, Breath sounds nml Cardiovascular: positive: Regular rate & rhythm, No murmur, No gallop Abdomen: positive: Non-tender, No organomegaly, Nml bowel sounds, No distention Back: negative: CVA tenderness (R), CVA tenderness (L) Neurologic/Psychiatric: positive: Oriented x3 Impression/Plan - Problem List Problem List: Pt is progressing well will discharge today. Discharge meds; celobrex 200 mg #30 Iron 325 mg colace 100 mg reviewed breast infection and contraception. RTC 1 and 6 weeks
[2018-01-24] MEDS: CELECOXIB 100 MG CAPSULE PO SCH (08:53)
[2018-01-24] MEDS: DOCUSATE SODIUM 100 MG CAPSULE PO SCH (08:53)
[2018-01-24] MEDS: FERROUS SULFATE 325 MG TABLET PO SCH (08:53)
--- NOTE | 2018-01-24 10:16 | DISCHARGE SUMMARY ---
Physician: John Chao MD DATE OF ADMISSION: 01/22/2018 DATE OF DISCHARGE: 01/24/2018 PROCEDURES 1. Spontaneous vaginal delivery. 2. Nitrous oxide analgesia. 3. Curettage of the uterus. DIAGNOSES 1. A 27-year-old G9, P3, AB5 female at 38 and 5 weeks. 2. Active labor. 3. Retained placental fragments. PRESENTING HISTORY: Patient is a 27-year-old G9, P3, AB5 female, who is 38 weeks and 5 days by early ultrasound. She presented with spontaneous contractions and was noted to be 9 cm on admission. Her OB care had been somewhat sporadic until presenting here at 30 weeks, at which time she had regular visits at our clinic. Her OB history was significant in that she had a previous delivery at 36 weeks. She also had some difficulty with care in the past. LABORATORIES: Patient's white count on admission was 10.3, hemoglobin 12.6, hematocrit of 36.6, platelets were 221. Postoperatively, they fell to a maik of 9.1; however, her white count reached a zenith at 22.7, but on discharge was 8.5. Her platelets reached a maik of 154, but rebounded to 160. HOSPITAL COURSE: Patient admitted, at which time she precipitously delivered a live female , with Apgars of 9 and 9, weighing 9 pounds 4 ounces. , she had difficulty with bleeding and, because of retained placental fragments, was taken back to the OR expeditiously, at which time a curettage was performed with fragments of placental tissue being removed. Her bleeding subsequently has resolved and she has noted clearing of her lochia. Her pain is minimal. She has not had any fevers. Her white count has also normalized. She is being discharged to home with instructions to follow up in the clinic in 1 and then again in 6 weeks. DISCHARGE MEDICATIONS 1. Celebrex 200 mg p.o. b.i.d., #30. 2. Colace 100 mg p.o. b.i.d. p.r.n. constipation. 3. Iron 325 mg p.o. daily. TD: 01/24/2018 09:08 ZAHRA
== END 2018-01-24 11:30 | disposition home or self-care (01) | DRG 768 ==
LOC: WFO 01:15 → FBP 01:19 → WFO 01:40 → FBP 01:43 → EEVIPCON 01:43
PROVIDERS: ADMIT Registered Nurse; ATTEND Obstetrics & Gynecology
PROC: 0W3R7ZZ Control Bleeding in Genitourinary Tract, Via Natural or Artificial Opening (ICD-10-PCS; 2018-01-22)
PROC: 10E0XZZ Delivery of Products of Conception, External Approach (ICD-10-PCS; principal; 2018-01-22 04:11)
DX: O99.344 Other mental disorders complicating childbirth (principal); O72.2 Delayed and secondary postpartum hemorrhage; D62 Acute posthemorrhagic anemia; O99.02 Anemia complicating childbirth; F32.9 Major depressive disorder, single episode, unspecified; O62.3 Precipitate labor; Z87.51 Personal history of pre-term labor; Z3A.38 38 weeks gestation of pregnancy; Z37.0 Single live birth; Z86.19 Personal history of other infectious and parasitic diseases
CPT/HCPCS: 36415; 80306; 80307; 81001; 85025; 85027; 86850; 86900; 86901; 86920; 87086; 88305; 99213

== ENCOUNTER 2019-10-01 18:46 | Outpatient (CLI) | payer MEDICAID ==
--- NOTE | 2019-10-01 20:12 | Ultrasound Report ---
Reason: PRESENCE OF IUD, + PREG TEST Procedure Date: 10/01/2019 Accession Number: [id number] / [id number] Procedure: US - OB First Trimester CPT Code: Final Report FULL RESULT: EXAM: FIRST TRIMESTER OBSTETRIC ULTRASOUND (Less than 11 weeks) EXAM DATE: 10/01/2019 06:56 PM. CLINICAL HISTORY: Positive test. IUD. LMP: 08/03/2019. COMPARISONS: None. TECHNIQUE: Transabdominal and transvaginal ultrasound examination with static image documentation. CLINICAL DATES: EGA 8 weeks 3 days with ANGEL 05/09/2020 based on LMP. ASSESSMENT: Gestational Sac: Single intrauterine. Mean gestational sac diameter: 13 mm = 6 weeks 1 day. Embryo: CRL (crown-rump length) 5 mm = 6 weeks 1 day. Cardiac activity: 117 beats per minute. Yolk sac: 3 mm. Amniotic fluid: Not accurately assessed at this gestational age. Early placenta: Not visible at this gestational age. Other: Small perigestational fluid collection 8 x 5 mm. MATERNAL STRUCTURES: Uterus: Anteverted. IUD noted in the lower uterine segment penetrating the left myometrium. Punctate endometrial calcifications. Otherwise unremarkable. Cervix: Closed. Right Ovary/Adnexa: The ovary measures 3.3 x 2.1 x 3.8 cm, volume 13.4 cc. Corpus luteum noted 2.8 x 2.1 x 2.7 cm, otherwise unremarkable. Left Ovary/Adnexa: The ovary measures 3.6 x 1.6 x 2.5 cm, volume 7.4 cc. Unremarkable. Free Fluid: None. Other: None. IMPRESSION: 1. Single viable intrauterine at EGA 6 weeks 1 day with ANGEL 05/25/2020 based on crown-rump length, which is discordant with clinical dates. 2. Assigned dating is ANGEL 05/25/2020 based on crown-rump length. 3. IUD noted in the lower uterine segment penetrating the myometrium on the left. RADIA The call report notification system was initiated by Dr. Srinivas Valera at 08:07 PM on 10/01/2019. The above call report findings were discussed with Clemencia Strong by Dr. Srinivas Valera at 08:10 PM on 10/01/2019.
== END 2019-10-01 18:47 | disposition home or self-care (01) ==
LOC: DI 18:46
PROVIDERS: ATTEND Obstetrics & Gynecology
DX: Z32.01 Encounter for pregnancy test, result positive (principal); Z97.5 Presence of (intrauterine) contraceptive device
CPT/HCPCS: 76801; 76817

== ENCOUNTER 2019-10-03 06:12 | Inpatient (IN) | payer MEDICAID ==
[2019-10-03] MEDS ORDERED: DOXYCYCLINE 100 MG TABLET PO ONE (06:39)
[2019-10-03] MEDS ORDERED: GABAPENTIN 400 MG CAPSULE ONE (06:40)
[2019-10-03] MEDS ORDERED: CEFAZOLIN SODIUM IN 0.9 % NACL 2 GM/100 ML BAG IV ONE (06:40)
[2019-10-03] MEDS ORDERED: CELECOXIB 100 MG CAPSULE PO ONE (06:40)
[2019-10-03] MEDS ORDERED: ACETAMINOPHEN 1,000 MG/100 ML 100 ML IV ONE ×2 (06:41→18:30)
[2019-10-03] MEDS ORDERED: LACTATED RINGERS 1,000 ML IV ONE ×5 (06:51→17:39)
[2019-10-03] MEDS ORDERED: LIDOCAINE 1%-EPI 1:100000 20 ML MDV ONE ×2 (07:10→13:25)
[2019-10-03] MEDS ORDERED: BUPIVACAINE 0.5% PF 30 ML VIAL ONE (07:11)
--- NOTE | 2019-10-03 07:13 | ANESTHESIA ---
Pre-Anesthesia VS, & Labs - Diagnosis undesired , retained IUD - Procedure hysteroscopy, IUD removal, D&C Vital Signs: Temp Pulse Resp BP Pulse Ox 36.8 C 77 12 96/62 100 10/03/19 06:40 10/03/19 06:40 10/03/19 06:40 10/03/19 06:40 10/03/19 06:40 Height 5 ft 3 in Weight (kg) 54 kg - Is Patient ?: Yes Home Medications and Allergies No Known Home Medications 01/23/18 Allergies/Adverse Reactions: Allergies Allergy/AdvReac Type Severity Reaction Status Date / Time Sulfa (Sulfonamide Allergy Severe Rash Verified 06/25/13 09:27 Antibiotics) Anes History & Medical History - Anesthetic History Anesthesia Complications: reports: No previous complications Family history of Anesthesia Complications: Denies Family history of Malignant Hyperthermia: Denies - Medical History Cardiovascular: reports: None Pulmonary: reports: None Musculoskeletal: reports: Chronic back pain Smoking Status: Never smoker - Surgical History Orthopedic: Other (right foot) Exam General: Alert, Oriented x3 Dental: WNL (metal tongue piercing in situ. pt reports unable to remove. counseled on potential for oral trauma in the event of airway placement/manipulation during anesthetic course) Mouth Opening: Greater than 4 Fingerbreadths Neck Mobility: Normal Mallampati classification: I Thyromental Distance: 4-6 cm Respiratory: Lungs clear Cardiovascular: Regular rate Plan Anesthesia Type: General, Total IV Consent for Procedure(s) Verified and Reviewed: Yes Code Status: Attempt Resuscitation ASA classification: 1-Healthy patient Is this case an emergency?: No
[2019-10-03 07:23] LABS: BASOPHILS # (AUTO) 0.1 10^3/uL (0.0-0.1); BASOPHILS % (AUTO) 0.5 %; EOSINOPHILS # (AUTO) 0.1 10^3/uL (0.0-0.7); EOSINOPHILS % (AUTO) 0.8 %; HGB - HEMOGLOBIN 11.5 g/dL (12.0-16.0); LYMPHOCYTES # (AUTO) 2.4 10^3/uL (1.5-3.5); LYMPHOCYTES % (AUTO) 18.4 %; MEAN CORPUSCULAR HEMOGLOBIN 30.4 pg (27.0-31.0); MEAN CORPUSCULAR HGB CONC 33.8 g/dL (32.0-36.0); MEAN CORPUSCULAR VOLUME 89.9 fL (81.0-99.0); MONOCYTES # (AUTO) 0.7 10^3/uL (0.0-1.0); MONOCYTES % (AUTO) 5.6 %; NEUTROPHILS # (AUTO) 9.7 10^3/uL (1.5-6.6); NEUTROPHILS % (AUTO) 74.2 %; PLT - PLATELET COUNT 256 10^3/uL (130-450); RED BLOOD COUNT 3.78 10^6/uL (4.20-5.40); RED CELL DISTRIBUTION WIDTH 13.5 % (12.0-15.0); WHITE BLOOD COUNT 13.1 x10^3/uL (4.8-10.8)
[2019-10-03] MEDS ORDERED: VASOPRESSIN 20 UNIT/ML VIAL ONE (07:24)
[2019-10-03] MEDS ORDERED: LIDOCAINE 1%-EPI 1:100000 20 ML MDV SUBQ ONE (08:23)
[2019-10-03] MEDS ORDERED: SILVER NITRATE APPLICATOR TOP ONE (08:43)
[2019-10-03] MEDS ORDERED: oxyCODONE 5 MG TABLET PO PRN (09:01)
--- NOTE | 2019-10-03 09:05 | OPERATIVE REPORT ---
Operative Report - General Procedure Date: 10/03/19 Planned Procedure: Hysteroscopic retrieval of retained IUD Suction D&C Insertion of Paraguard IUD Pre-Op Diagnosis: Retained Paragard IUD, undesired Procedure Performed: Suction D&C Diagnostic hysteroscopy Paragard IUD insertion Post Op Diagnosis: IUD not seen in uterus, same - Procedure Note Primary Surgeon: Deirdre Strong MD Anesthesia Technique: Local, MAC Pathology: Products of conception IV Fluids (mL): 600 Estimated Blood Loss (mL): 20 Indications: Patient is a 29 yo with a displaced Paraguard IUD and an intrauterine measuring 6w3d by 6w1d us. is high risk and undesired. Attempts were made to remove the IUD in clinic but were not successful. Given the contraindications to medical termination with IUD in place, the decision was made to proceed to the OR for suction D&C and hysteroscopic retrieval of the IUD. She desires re-insertion of Paragard IUD. Findings: Insertion of the dry hysteroscope (without water pump) did not show an intrauterine IUD. Suction D&C was performed followed with gentle sharp curettage. Low pressure hysteroscopy with water pump showed an empty uterine cavity without IUD in cavity. Complications: None - Other Other Information/Narrative: Risks benefits and alternatives to the procedure were reviewed. Consent was again confirmed. Patient was taken to the operating room where she underwent MAC anesthesia. She was positioned in dorsolithotomy position with legs resting in yellowfin stirrups. She was prepped and draped in the usual sterile fashion. Patient was provided with doxycycline prior to the procedure. Cefazolin 2g IV given prior to the procedure. Preoperative checklist was performed. Exam under anesthesia was performed. Speculum was placed in the vagina and the cervix was visualized. Single-tooth tenaculum was placed at the anterior cervical lip. Paracervical block was administered using a total of 20 cc of 1% lidocaine with epinephrine was injected at the 4:00 and 8:00 positions lateral to the portio of the cervix. The cervical os was serially dilated with Hegar dilators to accommodate the caliber of the diagnostic hysteroscope. A dry hysteroscope (water pump was not activated) was inserted into the lower uterine segment in an attempt to identify placement for the Paraguard IUD. IUD was not seen. A 7mm flexible suction catheter was inserted into the uterine cavity and advanced to the fundus. It was then connected to the vacuum and suction was activated. The catheter was slowly withdrawn from the cavity in a rotating motion. Suction was de-activated and catheter was again advanced to the fundus. Procedure was repeated in the manner until no further maternal was removed from the uterus. At no point was the catheter inserted into the uterus under active suction. The flexible catheter was removed. Gentle, sharp curettage was performed to confirm an empty uterine cavity. Once uterine evacuation was complete, hysteroscope was inserted with water pump set to low pressure (40 mmHg). The uterine cavity empty and bilateral tubal ostia were noted. Uterine henley were explored and no retained IUD parts were noted. Uterine cavity was smooth at close of the procedure. Hysteroscope was removed. Paragard IUD inserted according to package directions. Strings were trimmed to 2-3 cm. All instruments were removed from the uterus. Tenaculum was removed. Tenaculum sites were noted to be hemostatic after application of silver nitrate. All instruments were removed from the vagina. Procedure was well-tolerated without complication. Fluid deficit: estimated to be 200 cc NS, fluid balance not zeroed prior to procedure Paragard Lot [id number] Exp Jun 2025 [facility] [id number]
--- NOTE | 2019-10-03 09:32 | XRAY Report ---
Reason: Assess for placement of IUD Procedure Date: 10/03/2019 Accession Number: [id number] / [id number] Procedure: XR - Abdomen 1 View X-Ray CPT Code: 27339 Final Report FULL RESULT: EXAM: ABDOMEN RADIOGRAPHY EXAM DATE: 10/03/2019 09:19 AM. CLINICAL HISTORY: Assess for placement of IUD. COMPARISON: OB FIRST TRIMESTER 10/01/2019 6:56 PM. TECHNIQUE: 1 view. FINDINGS: Bowel Gas Pattern: Within normal limits. No dilated loops. Other: There are 2 IUDs projected over the lower pelvis. The upper IUD is oriented horizontally. IMPRESSION: 1. There are 2 IUDs projected over the lower pelvis, upper IUD is oriented horizontally. 2. Normal bowel gas pattern. RADIA
--- NOTE | 2019-10-03 13:08 | ANESTHESIA ---
Pre-Anesthesia VS, & Labs - Diagnosis migrated IUD - Procedure laparoscopy, retrieval of migrated IUD Vital Signs: Temp Pulse Resp BP Pulse Ox 37.7 C H 87 19 102/62 99 10/03/19 12:23 10/03/19 12:23 10/03/19 12:23 10/03/19 12:23 10/03/19 12:23 Height 5 ft 3 in Weight (kg) 54 kg - Is Patient ?: No - Lab Results Current Lab Results: Laboratory Tests 10/03/19 07:09: POC Whole Bld Glucose 89 10/03/19 07:00: WBC 13.1 H, RBC 3.78 L, Hgb 11.5 L, Hct 34.0 L, MCV 89.9, MCH 30.4, MCHC 33.8, RDW 13.5, Plt Count 256, MPV 11.0 H, Neut # (Auto) 9.7 H, Lymph # (Auto) 2.4, [place] # (Auto) 0.7, Eos # (Auto) 0.1, Baso # (Auto) 0.1, Absolute Nucleated RBC 0.00, Nucleated RBC % 0.0 Fish Bones: 10/03/19 07:00 Home Medications and Allergies Active Medications Oxycodone HCl (Roxicodone) 5 mg PO Q4HR PRN PRN Reason: PAIN No Known Home Medications 01/23/18 Allergies/Adverse Reactions: Allergies Allergy/AdvReac Type Severity Reaction Status Date / Time Sulfa (Sulfonamide Allergy Severe Rash Verified 06/25/13 09:27 Antibiotics) Anes History & Medical History - Anesthetic History Anesthesia Complications: reports: No previous complications - Medical History Cardiovascular: reports: None Pulmonary: reports: None Gastrointestinal: reports: None Urinary: reports: None Musculoskeletal: reports: Chronic back pain Endocrine/Autoimmune: reports: None Skin: reports: None Smoking Status: Never smoker - Surgical History Gynecologic: Dilation and currettage Orthopedic: Other (right foot) Exam General: Alert, Oriented x3, Cooperative Dental: WNL (metal tongue piercing in situ. pt reports unable to remove. counseled on potential for oral trauma in the event of airway placement/manipulation during anesthetic course) Mouth Opening: Greater than 4 Fingerbreadths Neck Mobility: Normal Mallampati classification: I Thyromental Distance: 4-6 cm Respiratory: Lungs clear Cardiovascular: Regular rate (tongue pierced. pt reports piercing can't be removed. counseled on risk of trauma during intubation. accepts and wishes to proceed) Plan Anesthesia Type: General Consent for Procedure(s) Verified and Reviewed: Yes Code Status: Attempt Resuscitation ASA classification: 1-Healthy patient Is this case an emergency?: No
[2019-10-03] MEDS ORDERED: BUPIVACAINE 0.5% PF 30 ML VIAL INFIL ONE ×2 (14:10)
--- NOTE | 2019-10-03 17:28 | OPERATIVE REPORT ---
Operative Report - General Procedure Date: 10/03/19 Pre-Op Diagnosis: missing IUD Procedure Performed: Diagnostic laparoscopy, 90 minute of lysis of adhesions with removal of imbedded foreign body (prior placed paragaurd IUD) that had eroded into the anterior colonic wall at the recto-sigmoid junction, rigid proctoscope, primary repair of anterior colon wall injury and drain placement Post Op Diagnosis: Foreign body eroded into the recto-sigmoid colonic wall - Procedure Note Primary Surgeon: Racheal Ventura MD Secondary Surgeon: Clemencia Strong MD Anesthesia Technique: General ET tube Pathology: prior placed paragaurd IUD Estimated Blood Loss (mL): 25 Drain/Tube Type: Benjamin Greene flat drain (left in the pelvis between posterior wall of the uterus and anterior wall of the colon) Indications: Ada is a patient I had not met prior to the procedure, I was asked for an intra-operative consult by Dr. Strong when she found that a prior placed IUD was deeply imbedded between the lower uterine posterior wall and the anterior wall of the colon. I was asked to physician assistant with surgery with adhesiolysis and identification/removal of the IUD and when it was concerning that one of the arms the IUD had eroded into the anterior wall was asked to take over as primary. Findings: paragaurd IUD deeply embedded between the posterior wall of the lower uterine segment and the anterior recto-sigmoid colonic wall. The main body of the IUD has eroded into the serosal layer of the colon and one of the arms of the IUD had eroded transmurally, identified and confirmed on rigid proctoscopic insufflation, the patient's sister was contacted intra-operative and options of primary repair vs. repair with diverting ostomy after discussion and review of the bowel injury and decision for primary repair with 2 layer closure and drainage was made. - Other Other Information/Narrative: After scrubbing into the case a 5 mm umbilical port and a 5mm RLQ port were in place as well as a uterine manipulator. The uterus was boggy and mildly enlarged most likely due to recent intrauterine procedure. and. Inspection of the pelvis revealed dense adhesions between the posterior wall of the lower uterine segment and the anterior of the colon at the level of the recto-sigmoid junction. During this step of the procedure, the uterine manipulator was pushed upwards and to the left side to provide maximal visualization. The stings of the IUD which was suspected to be in the adhesions were visible. To help with dissection a 5 mm LLQ port was placed. Dissection by Dr. Strong revealed the base of the IUD to be perpendicular to the colon and towards the right side. Using this end she began to dissect the area out. It appeared that the IUD had eroded into the serosal surface of the colon. An additional 5 mm port was placed in the RLQ to help with dissection. As the device seemed to be well embedded and eroding into the colon we changed positions and I began the dissection and ahesionlysis. The was done bluntly and sharply with endo shear, cautery was avoided. As the lenght of the IUD was identified it was found to be perpendicular to the colon and near the left side the posterior uterine wall and the colon were densely adherent where the arms of the IUD would be. As dissection continued along the IUD it was confirmed that it had erroded into the serosal layer of the colon, upon reaching the arms one arm of the IUD appeared to be through the wall of the colon. There was not an obvious hole, so the IUD was completed freed and removed from the abdominal cavity intact. Given how deeply the IUD was embedded and the position of the arm with dissection I had a high level of concern for a full thickness injury so rigid proctoscope was preformed. In the ususal fasion I inserted the scope into the rectum and under submersion with the proximal colon compressed an air test was done and confirmed a small hole at the site of the arm of the IUD. The colon had chronic adesions but no signs of acute inflammation. The options of repair with and without diverting ostomy were discussed and then presented to the patient's sister who requested that we attempt a primary repair without ostomy understanding the risk of leak/failure to heal/worsening of the clinical condition/need for future resection &/or ostomy formation. Given the patient's age, lack of any underlying medical conditions, injury type and location we elected to proceed as the sister requested with primary 2 layer closure and drainage. The remaining adhesions between the colon and uterine wall were taken down with sharp dissection. A 2 layer intra-corporeal closure was then preformed with inner full thickness 3-0 PDS closure and second running imbercating 3-0 PDS closure. The abdomen was inspected and hemostasis was obtained along the repair and inspected for a leak. The posterior vaginal wall was inspected as well. A 10 flat HARRY drain was then brought out through the lower RLQ port side and placed into the pelvis between the uterus and colon and secured to the skin with 3-0 nylon. The abdomen was inspected and then the pneumoperitium was release and the ports removed. Dr Strong closed the port sites. Sterile dressings were placed on the wound sites. The drapes were removed and patient placed back in the supine position. The patient was then awaken and extubated and recovered in the Operating Room per the current hospital protocols. All sponge, sharps, and instrument counts were correct. The patient tolerated the procedure without difficulty
--- NOTE | 2019-10-03 17:29 | OPERATIVE REPORT ---
Operative Report - General Procedure Date: 10/03/19 Planned Procedure: Diagnostic laparoscopy with removal of retained IUD Pre-Op Diagnosis: Retained IUD Procedure Performed: Diagnostic laparoscopy with intraoperative consultation with General Surgery. Please see operative report submitted by Dr. Ventura. Procedure converted to adhesiolysis, removal of foreign body, primary bowel perforation repair, drain placement and performed by Dr. Ventura with myself as the assistant athletic trainer. Post Op Diagnosis: History of uterine perforation with IUD migration and erosion into colon wa - Procedure Note Primary Surgeon: Deirdre Strong MD Secondary Surgeon: Racheal Ventura MD Anesthesia Provider: Amish Dobbins MD Anesthesia Technique: General ET tube Pathology: None IV Fluids (mL): 900 Estimated Blood Loss (mL): 25 Drain/Tube Type: Benjamin Greene flat drain Indications: Patient is a 29 yo who presented with and IUD in place. She underwent a pelvic ultrasound on 10/01/19 that showed an intrauterine with IUD in the lower uterie segment with partial insertion into the myometrium. After significant gambling counsellor and consideration, patient opted to remove the IUD and terminate the . Attempt to remove the IUD in office was attempted on 10/02/19 without success. She was brought to the OR on 10/03/19 to undergo hysteroscopic retrieval of the IUD and suction D&C. Suction D&C was performed and IUD was not seen in the uterine cavity with hysteroscopic examination. A Paraguard IUD was placed In the recovery unit, an abdominal x-ray was performed which showed two IUDs in the pelvis. The decision was made to proceed back to the OR for to retrieve the IUD from the abdomen/pelvis. Risks/benefits/alternatives were reviewed, specifically reviewing possibility of bowel/bladder perforation. Findings: IUD found to be embedded in the wall of the colon, with the shaft of the IUD aligned along the length of the colon and the end positioned to the right aspect of the pelvis with overlying chronic inflammatory tissue. The IUD strings were embedded under the mucosa and exited at the opposite end of the IUD. One end of the IUD was embedded into the colon wall, perforating the lumen. Complications: None - Other Other Information/Narrative: Risks benefits and alternatives of the procedure were reviewed. Consent was again confirmed. Patient was brought to the operating room and underwent general anesthesia. She was placed in dorsal lithotomy position with legs resting in yellowfin stirrups. SCDs were in place and activated. Cefazolin 2 g IV and metronidazole were administered during the course of the procedure. She was prepped and draped in the usual sterile fashion. Surgical timeout was performed. Bimanual exam was performed. Sterile speculum was placed and [place] uterine manipulator was placed. The base of the umbilicus was anesthetized with intradermal injection of 0.25% Marcaine. A 5 mm skin incision was made with a scalpel. A 5 mm blunt trocar was inserted under direct visualization using Visiport. Once the port was confirmed to be placed intraperitoneally, the abdomen was insufflated to 15 mmHg with CO2 gas Exploration of the abdomen and pelvis was confirmed that no injury was sustained with placement of the trocar. Two additional 5 mm ports were placed in the right and left lower quadrants, taking care to avoid the epigastric arteries, while under direct visualization via laparoscopic guidance. The abdomen was explored with the laparoscope, with findings as noted. Once the involvement of the bowel was noted, Dr. Racheal Ventura of General Surgery was consulted. The procedure was then converted to adhesiolysis, removal of foreign body (IUD), priamry repair of perforating bowel injury, and drain placement. Please see Dr. Ventura's operative report for full details of the remainder of the procedure. After close of procedure, all instruments were removed from the abdomen. Skin was closed with interrupted subcuticular stitches using 4-0 Monocryl. Dermabond was applied over the suture sites. All instruments were removed from the vagina. Good hemostasis was noted. The final sponge needle and instrument counts were correct at completion of the procedure patient was awakened taken to the postanesthesia care unit in stable condition.
[2019-10-03] MEDS: LACTATED RINGERS 1,000 ML IV SCH (18:33)
[2019-10-03] MEDS: PIPERACILLIN/TAZOBACTAM 3.375 GM in SODIUM CHLORIDE 0.9% MINIBAG 100 ML IV SCH (18:33)
[2019-10-03] MEDS: FAMOTIDINE 20 MG/2 ML VIAL IVP SCH (21:11)
[2019-10-03] MEDS: KETOROLAC 15 MG/ML VIAL IVP PRN (21:11)
[2019-10-04] MEDS: PIPERACILLIN/TAZOBACTAM 3.375 GM in SODIUM CHLORIDE 0.9% MINIBAG 100 ML IV SCH ×5 (00:28→23:48)
[2019-10-04] MEDS: HYDROmorphone 0.5 MG/0.5 ML SYRINGE IVP PRN ×5 (00:38→20:49)
[2019-10-04] MEDS: KETOROLAC 15 MG/ML VIAL IVP PRN ×2 (03:23→23:43)
[2019-10-04] MEDS: LACTATED RINGERS 1,000 ML IV SCH (04:35)
[2019-10-04 04:58] LABS: BASOPHILS # (AUTO) 0.1 10^3/uL (0.0-0.1); BASOPHILS % (AUTO) 0.4 %; HGB - HEMOGLOBIN 9.7 g/dL (12.0-16.0); LYMPHOCYTES # (AUTO) 1.8 10^3/uL (1.5-3.5); LYMPHOCYTES % (AUTO) 10.6 %; MEAN CORPUSCULAR HEMOGLOBIN 30.5 pg (27.0-31.0); MEAN CORPUSCULAR VOLUME 92.5 fL (81.0-99.0); MEAN PLATELET VOLUME 11.4 fL (7.9-10.8); MONOCYTES # (AUTO) 1.1 10^3/uL (0.0-1.0); MONOCYTES % (AUTO) 6.3 %; PLT - PLATELET COUNT 211 10^3/uL (130-450); RED BLOOD COUNT 3.18 10^6/uL (4.20-5.40); RED CELL DISTRIBUTION WIDTH 13.7 % (12.0-15.0); WHITE BLOOD COUNT 17.1 x10^3/uL (4.8-10.8)
[2019-10-04 05:07] LABS: CREATININE 0.6 mg/dL (0.4-1.0)
--- NOTE | 2019-10-04 09:28 | PROVIDER PROGRESS NOTE ---
Subjective - General Admit Date: 10/03/19 Procedure Date: 10/03/19 Post Op Days: 1 Procedure Performed: Dx lap, removal of eroded IUD, repair of colon injury - Review of Systems Wound/Incisions: positive: Healing well, No drainage Drain Type: HARRY pelvic drain Drain Output Description: SS Approximate mls Output: 70 ml NOC General: positive: Other (vague lower abdominal pain, worse with standing). negative: Fever, Chills Pulmonary: positive: No symptoms Cardiovascular: positive: No symptoms Gastrointestinal: positive: Abdominal pain. negative: Nausea, Vomiting, Flatus Genitourinary: positive: Retention (having difficulty with starting and fully emptying her bladder) Objective - Patient Data Reviewed Vital Signs: Yes Vital Signs: Vital Signs x48h Temp Pulse Resp BP Pulse Ox 10/04/19 07:42 36.8 C 61 18 95/54 L 100 10/04/19 03:33 36.5 C 52 L 16 100/59 L 100 Weight: Weight 10/02/19 10/03/19 10/04/19 23:59 23:59 23:59 Weight (kg) 54 kg Intake & Output: Intake and Output Totals x24h 10/02/19 10/03/19 10/04/19 23:59 23:59 23:59 Intake Total 1100 1200 Output Total 365 620 Balance 735 580 - Lab Results Lab Results: 10/04/19 04:20 10/04/19 04:20 Other Lab Results: Lab Results x24hrs 10/04/19 10/04/19 Range/Units 04:20 04:20 WBC 17.1 H (4.8-10.8) x10^3/uL RBC 3.18 L (4.20-5.40) 10^6/uL Hgb 9.7 L (12.0-16.0) g/dL Hct 29.4 L (37.0-47.0) % MCV 92.5 (81.0-99.0) fL MCH 30.5 (27.0-31.0) pg MCHC 33.0 (32.0-36.0) g/dL RDW 13.7 (12.0-15.0) % Plt Count 211 (130-450) 10^3/uL MPV 11.4 H (7.9-10.8) fL Neut # (Auto) 14.0 H (1.5-6.6) 10^3/uL Lymph # (Auto) 1.8 (1.5-3.5) 10^3/uL [place] # (Auto) 1.1 H (0.0-1.0) 10^3/uL Eos # (Auto) 0.0 (0.0-0.7) 10^3/uL Baso # (Auto) 0.1 (0.0-0.1) 10^3/uL Absolute Nucleated RBC 0.00 x10^3/uL Nucleated RBC % 0.0 /100WBC Sodium 137 (135-145) mmol/L Potassium 3.3 L (3.5-5.0) mmol/L Chloride 107 (101-111) mmol/L Carbon Dioxide 24 (21-32) mmol/L Anion Gap 6.0 (6-13) BUN 11 (6-20) mg/dL Creatinine 0.6 (0.4-1.0) mg/dL Estimated GFR (MDRD) 118 (>89) Glucose 115 H (70-100) mg/dL Calcium 8.0 L (8.5-10.3) mg/dL - Current Medications Current Medications: Current Medications Generic Name Dose Route Start Last Admin Trade Name Freq PRN Reason Stop Dose Admin Famotidine 20 mg 10/03/19 21:00 10/03/19 21:11 Pepcid IVP 20 mg BID LETICIA Administration Hydromorphone HCl 0.5 mg 10/03/19 17:13 10/04/19 05:56 Dilaudid Inj Syringe IVP 0.5 mg Q2H PRN Administration PAIN Piperacillin Sod/Tazobactam 100 mls @ 200 mls/hr 10/03/19 18:00 10/04/19 06:15 Sod 3.375 gm/ Sodium Chloride IV 10/28/19 06:29 Infused Q6H LETICIA Infusion Ketorolac Tromethamine 15 mg 10/03/19 17:13 10/04/19 03:23 Toradol Inj (15mg) IVP 10/08/19 17:12 15 mg Q6HR PRN Administration PAIN - Physical Exam Wound/Incisions: positive: Healing well, No drainage General Appearance: positive: No acute distress (resting in bed able to hold conversation without difficulty) Respiratory: positive: No respiratory distress, Breath sounds nml Cardiovascular: positive: Regular rate & rhythm Abdomen: positive: Other (mild suprapubic tenderness, mild distention, no peritoneal signs, no R/G/R) Skin: positive: Color nml, No rash, Warm, Dry. negative: Diaphoresis, Pallor Extremities: positive: Full ROM, Nml appearance Neurologic/Psychiatric: positive: Oriented x3 ABX Reporting Has patient been on IV antibiotics over the past 48 hours?: Yes Impression/Plan - Problem List Problem List: POD #1 s/p primary colon repair from FB (IUD) colon injury. Clinically the patient is doing well exam typical post operative mild discomfort and distention, she is without fever, HARRY drain expected SS output, plan to continue IV abx, IVF, supportive care, will allow clears, await BF return. Recheck CBC in am.
[2019-10-04] MEDS: FAMOTIDINE 20 MG/2 ML VIAL IVP SCH (10:13)
[2019-10-04] MEDS: NS W/40 MEQ KCL 1,000 ML IV SCH ×2 (10:14→18:29)
--- NOTE | 2019-10-04 15:00 | PROVIDER PROGRESS NOTE ---
Subjective - General Admit Date: 10/03/19 Procedure Date: 10/03/19 Post Op Days: 1 Procedure Performed: Dx lap, removal of eroded IUD, repair of colon injury - Review of Systems Wound/Incisions: positive: Healing well, No drainage Drain Type: HARRY pelvic drain Drain Output Description: SS Approximate mls Output: 70 ml NOC General: positive: Fatigue (exhausted). negative: Fever, Chills Pulmonary: positive: No symptoms Cardiovascular: positive: No symptoms Gastrointestinal: positive: Abdominal pain (cramping in the pelvis, feels like bad period cramps). negative: Nausea, Vomiting, Flatus Genitourinary: positive: Retention (having difficulty with starting and fully emptying her bladder) Objective - Patient Data Vital Signs: Vital Signs x48h Temp Pulse Pulse Resp BP Pulse Ox 10/04/19 12:18 36.8 C 68 18 95/47 L 98 10/04/19 11:15 36.8 C 52 L 16 98 10/04/19 07:42 36.8 C 61 18 95/54 L 100 Weight: Weight 10/02/19 10/03/19 10/04/19 23:59 23:59 23:59 Weight (kg) 54 kg Intake & Output: Intake and Output Totals x24h 10/02/19 10/03/19 10/04/19 23:59 23:59 23:59 Intake Total 1100 2438.33 Output Total 365 1060 Balance 735 1378.33 - Lab Results Lab Results: 10/04/19 04:20 10/04/19 04:20 Other Lab Results: Lab Results x24hrs 10/04/19 10/04/19 Range/Units 04:20 04:20 WBC 17.1 H (4.8-10.8) x10^3/uL RBC 3.18 L (4.20-5.40) 10^6/uL Hgb 9.7 L (12.0-16.0) g/dL Hct 29.4 L (37.0-47.0) % MCV 92.5 (81.0-99.0) fL MCH 30.5 (27.0-31.0) pg MCHC 33.0 (32.0-36.0) g/dL RDW 13.7 (12.0-15.0) % Plt Count 211 (130-450) 10^3/uL MPV 11.4 H (7.9-10.8) fL Neut # (Auto) 14.0 H (1.5-6.6) 10^3/uL Lymph # (Auto) 1.8 (1.5-3.5) 10^3/uL [place] # (Auto) 1.1 H (0.0-1.0) 10^3/uL Eos # (Auto) 0.0 (0.0-0.7) 10^3/uL Baso # (Auto) 0.1 (0.0-0.1) 10^3/uL Absolute Nucleated RBC 0.00 x10^3/uL Nucleated RBC % 0.0 /100WBC Sodium 137 (135-145) mmol/L Potassium 3.3 L (3.5-5.0) mmol/L Chloride 107 (101-111) mmol/L Carbon Dioxide 24 (21-32) mmol/L Anion Gap 6.0 (6-13) BUN 11 (6-20) mg/dL Creatinine 0.6 (0.4-1.0) mg/dL Estimated GFR (MDRD) 118 (>89) Glucose 115 H (70-100) mg/dL Calcium 8.0 L (8.5-10.3) mg/dL - Current Medications Current Medications: Current Medications Generic Name Dose Route Start Last Admin Trade Name Freq PRN Reason Stop Dose Admin Hydromorphone HCl 0.5 mg 10/03/19 17:13 10/04/19 14:50 Dilaudid Inj Syringe IVP 0.5 mg Q2H PRN Administration PAIN Piperacillin Sod/Tazobactam 100 mls @ 200 mls/hr 10/03/19 18:00 10/04/19 14:44 Sod 3.375 gm/ Sodium Chloride IV 10/28/19 06:29 Infused Q6H LETICIA Infusion Potassium Chloride/Sodium Chloride 1,000 mls @ 100 mls/hr 10/04/19 09:00 10/04/19 14:44 Normal Saline 0.9% W/40 Meq Kcl IV 100 mls/hr .Q10H LETICIA Infusion Ketorolac Tromethamine 15 mg 10/03/19 17:13 10/04/19 03:23 Toradol Inj (15mg) IVP 10/08/19 17:12 15 mg Q6HR PRN Administration PAIN Impression/Plan - Problem List Problem List: POD #1 s/p primary colon repair with no new issues through the day, continue current post operative plan of care
[2019-10-04] MEDS ORDERED: MIDAZOLAM 2 MG/2 ML VIAL IVP ONE (15:29)
[2019-10-04] MEDS ORDERED: PROPOFOL 200 MG/20 ML VIAL IVP ONE ×2 (15:29)
[2019-10-04] MEDS ORDERED: ROCURONIUM 50 MG/5 ML VIAL IVP ONE (15:29)
[2019-10-04] MEDS ORDERED: fentaNYL 100 MCG/2 ML VIAL IVP ONE ×2 (15:29)
[2019-10-04] MEDS ORDERED: KETOROLAC 30 MG/ML VIAL IVP ONE (15:29)
[2019-10-04] MEDS ORDERED: GLYCOPYRROLATE 1 MG/5 ML VIAL IVP ONE (15:29)
[2019-10-04] MEDS ORDERED: NEOSTIGMINE 1 MG/1 ML 10 ML MDV IVP ONE (15:29)
[2019-10-04] MEDS: ONDANSETRON 4 MG/2 ML VIAL IVP PRN (18:22)
[2019-10-04] MEDS: FAMOTIDINE 20 MG/2 ML SYRINGE IVP SCH (20:50)
--- NOTE | 2019-10-04 23:33 | PROVIDER PROGRESS NOTE ---
Subjective - Prog Note Date Prog Note Date: 10/04/19 Prog Note Time: 17:28 - Subjective Subjective: Saw patient earlier this am; sleeping and did not disturb. Patient has been up and ambulating. Has been tolerating some juice but has nausea at present. No emesis. Interested in switching form Zofran to Reglan to support re- efforts. Passed small amount of flatus this afternoon after voiding. Pain relatively well managed. Diffuse discomfort in upper abdomen as mush as lower abdomen. Reports that HARRY drain has been emptied several times of serosang fluid; no foul odor or discoloration in fluid. Objective - Vital Signs/Intake & Output Reviewed Vital Signs: Yes Vital Signs: Vital Signs x48h Temp Pulse Resp BP Pulse Ox 10/04/19 20:18 98.6 F 61 16 96/51 L 99 10/04/19 15:35 98.2 F 72 16 93/49 L 100 Intake & Output: Intake & Output 10/01/19 10/02/19 10/03/19 10/04/19 23:59 23:59 23:59 23:59 Intake Total 1100 3033.33 Output Total 365 1705 Balance 735 1328.33 - Objective General Appearance: positive: No acute distress Respiratory: positive: No respiratory distress, Breath sounds nml Cardiovascular: positive: Regular rate & rhythm Abdomen: positive: Other (mild distention, appropriatelt tender. Port sites CDI. Drain dressing CDI) Skin: positive: Color nml Extremities: positive: Other (SCDs in place. NT, no edema) Neurologic/Psychiatric: positive: Oriented x3 - Lab Results Fish Bones: 10/04/19 04:20 10/04/19 04:20 Other Labs: Lab Results x24hrs 10/04/19 10/04/19 Range/Units 04:20 04:20 WBC 17.1 H (4.8-10.8) x10^3/uL RBC 3.18 L (4.20-5.40) 10^6/uL Hgb 9.7 L (12.0-16.0) g/dL Hct 29.4 L (37.0-47.0) % MCV 92.5 (81.0-99.0) fL MCH 30.5 (27.0-31.0) pg MCHC 33.0 (32.0-36.0) g/dL RDW 13.7 (12.0-15.0) % Plt Count 211 (130-450) 10^3/uL MPV 11.4 H (7.9-10.8) fL Neut # (Auto) 14.0 H (1.5-6.6) 10^3/uL Lymph # (Auto) 1.8 (1.5-3.5) 10^3/uL [place] # (Auto) 1.1 H (0.0-1.0) 10^3/uL Eos # (Auto) 0.0 (0.0-0.7) 10^3/uL Baso # (Auto) 0.1 (0.0-0.1) 10^3/uL Absolute Nucleated RBC 0.00 x10^3/uL Nucleated RBC % 0.0 /100WBC Sodium 137 (135-145) mmol/L Potassium 3.3 L (3.5-5.0) mmol/L Chloride 107 (101-111) mmol/L Carbon Dioxide 24 (21-32) mmol/L Anion Gap 6.0 (6-13) BUN 11 (6-20) mg/dL Creatinine 0.6 (0.4-1.0) mg/dL Estimated GFR (MDRD) 118 (>89) Glucose 115 H (70-100) mg/dL Calcium 8.0 L (8.5-10.3) mg/dL Assessment/Plan - Problem List (1) Bowel perforation Impression: POD#1 S/p D&C, IUD placementment, removal of foreign body with bowel perforation and repair General Surgery primary; will defer to GS plan Doing well from Pool Lifeguard perspective Patient interested in Reglan for anti-emetic; will defer to Dr. Ventura
[2019-10-05] MEDS: HYDROmorphone 0.5 MG/0.5 ML SYRINGE IVP PRN ×5 (04:50→20:40)
[2019-10-05 05:22] LABS: BASOPHILS % (AUTO) 0.5 %; EOSINOPHILS # (AUTO) 0.1 10^3/uL (0.0-0.7); EOSINOPHILS % (AUTO) 0.7 %; HGB - HEMOGLOBIN 9.7 g/dL (12.0-16.0); LYMPHOCYTES # (AUTO) 2.6 10^3/uL (1.5-3.5); LYMPHOCYTES % (AUTO) 30.9 %; MEAN CORPUSCULAR HEMOGLOBIN 29.9 pg (27.0-31.0); MEAN CORPUSCULAR HGB CONC 31.9 g/dL (32.0-36.0); MEAN CORPUSCULAR VOLUME 93.8 fL (81.0-99.0); MONOCYTES # (AUTO) 0.7 10^3/uL (0.0-1.0); MONOCYTES % (AUTO) 8.4 %; NEUTROPHILS # (AUTO) 4.9 10^3/uL (1.5-6.6); NEUTROPHILS % (AUTO) 59.1 %; PLT - PLATELET COUNT 203 10^3/uL (130-450); RED BLOOD COUNT 3.24 10^6/uL (4.20-5.40); WHITE BLOOD COUNT 8.2 x10^3/uL (4.8-10.8)
[2019-10-05 05:31] LABS: CALCIUM 7.6 mg/dL (8.5-10.3); CREATININE 0.6 mg/dL (0.4-1.0)
[2019-10-05] MEDS: NS W/40 MEQ KCL 1,000 ML IV SCH ×3 (05:35→22:29)
[2019-10-05] MEDS: PIPERACILLIN/TAZOBACTAM 3.375 GM in SODIUM CHLORIDE 0.9% MINIBAG 100 ML IV SCH ×3 (05:36→18:17)
[2019-10-05] MEDS: KETOROLAC 15 MG/ML VIAL IVP PRN ×2 (08:27→16:17)
[2019-10-05] MEDS: FAMOTIDINE 20 MG/2 ML SYRINGE IVP SCH ×2 (08:27→20:40)
--- NOTE | 2019-10-05 10:00 | PROVIDER PROGRESS NOTE ---
Subjective - General Admit Date: 10/03/19 Procedure Date: 10/03/19 Post Op Days: 2 Procedure Performed: Dx lap, removal of eroded IUD, repair of colon injury - Review of Systems Wound/Incisions: positive: Healing well, No drainage Drain Type: HARRY pelvic drain Drain Output Description: SS, no gas, no foul smell Approximate mls Output: >300 ml in 24 hours General: positive: Fatigue (exhausted). negative: Fever, Chills Pulmonary: positive: No symptoms Cardiovascular: positive: No symptoms Gastrointestinal: positive: Abdominal pain (cramping in the pelvis, better today than yesterday), Flatus (had one episode after urination, but not consitent). negative: Nausea (tolerated clears without nausea), Vomiting Genitourinary: positive: Retention (improving) Objective - Patient Data Vital Signs: Vital Signs x48h Temp Pulse Resp BP Pulse Ox 10/05/19 09:09 100/63 10/05/19 07:33 36.8 C 58 L 16 97/48 L 96 10/05/19 04:47 36.9 C 65 16 99/42 L 100 Weight: Weight 10/03/19 10/04/19 10/05/19 23:59 23:59 23:59 Weight (kg) 54 kg Intake & Output: Intake and Output Totals x24h 10/03/19 10/04/19 10/05/19 23:59 23:59 23:59 Intake Total 1100 3033.33 1361.667 Output Total 365 1705 545 Balance 735 1328.33 816.667 - Lab Results Lab Results: 10/05/19 05:15 10/05/19 05:15 Other Lab Results: Lab Results x24hrs 10/05/19 10/05/19 Range/Units 05:15 05:15 WBC 8.2 (4.8-10.8) x10^3/uL RBC 3.24 L (4.20-5.40) 10^6/uL Hgb 9.7 L (12.0-16.0) g/dL Hct 30.4 L (37.0-47.0) % MCV 93.8 (81.0-99.0) fL MCH 29.9 (27.0-31.0) pg MCHC 31.9 L (32.0-36.0) g/dL RDW 14.0 (12.0-15.0) % Plt Count 203 (130-450) 10^3/uL MPV 11.0 H (7.9-10.8) fL Neut # (Auto) 4.9 (1.5-6.6) 10^3/uL Lymph # (Auto) 2.6 (1.5-3.5) 10^3/uL [place] # (Auto) 0.7 (0.0-1.0) 10^3/uL Eos # (Auto) 0.1 (0.0-0.7) 10^3/uL Baso # (Auto) 0.0 (0.0-0.1) 10^3/uL Absolute Nucleated RBC 0.00 x10^3/uL Nucleated RBC % 0.0 /100WBC Sodium 137 (135-145) mmol/L Potassium 3.8 (3.5-5.0) mmol/L Chloride 110 (101-111) mmol/L Carbon Dioxide 23 (21-32) mmol/L Anion Gap 4.0 L (6-13) BUN 10 (6-20) mg/dL Creatinine 0.6 (0.4-1.0) mg/dL Estimated GFR (MDRD) 118 (>89) Glucose 93 (70-100) mg/dL Calcium 7.6 L (8.5-10.3) mg/dL - Current Medications Current Medications: Current Medications Generic Name Dose Route Start Last Admin Trade Name Freq PRN Reason Stop Dose Admin Famotidine 20 mg 10/04/19 21:00 10/05/19 08:27 Pepcid IVP 20 mg BID LETICIA Administration Hydromorphone HCl 0.5 mg 10/03/19 17:13 10/05/19 09:10 Dilaudid Inj Syringe IVP 0.5 mg Q2H PRN Administration PAIN Piperacillin Sod/Tazobactam 100 mls @ 200 mls/hr 10/03/19 18:00 10/05/19 06:16 Sod 3.375 gm/ Sodium Chloride IV 10/28/19 06:29 Infused Q6H LETICIA Infusion Ketorolac Tromethamine 15 mg 10/03/19 17:13 10/05/19 08:27 Toradol Inj (15mg) IVP 10/08/19 17:12 15 mg Q6HR PRN Administration PAIN Ondansetron HCl 4 mg 10/03/19 17:13 10/04/19 18:22 Zofran Inj IVP 4 mg Q6HR PRN Administration Nausea / Vomiting - Physical Exam Wound/Incisions: positive: Healing well, No drainage General Appearance: positive: No acute distress Respiratory: positive: No respiratory distress, Breath sounds nml Cardiovascular: positive: Regular rate & rhythm Abdomen: positive: Other (mild distention and suprapubic tenderness, slightly improved from yesterdays exam, BS are present, no peritoneal signs no R/G/R) Skin: positive: Color nml Extremities: positive: Full ROM, Nml appearance Neurologic/Psychiatric: positive: Oriented x3 Impression/Plan - Problem List Problem List: POD #2 s/p laparoscopic primary colonic injury repair secondary to IUD. Patient is doing well, no fevers, WBC back in the normal range, tolerated clears without nausea. Will allow transition to full liquids, start reglan PO and await full return of bowel function prior to consideration of d/c.
[2019-10-05] MEDS: METOCLOPRAMIDE 10 MG TABLET PO SCH ×2 (10:29→16:06)
[2019-10-05] MEDS: ONDANSETRON 4 MG/2 ML VIAL IVP PRN (12:31)
--- NOTE | 2019-10-05 18:33 | PROVIDER PROGRESS NOTE ---
Subjective - Prog Note Date Prog Note Date: 10/05/19 Prog Note Time: 18:30 - Subjective Subjective: Patient has been up and ambulating. Reports pain 7-8/10 when off medications. Still takign dilaudid and toradol seems to help. No nausea today, mainly feeling dizzy. Tolerating full liquids. Has had sporadic episodes of flatus. Voiding without issue. Afebrile. Objective - Vital Signs/Intake & Output Vital Signs: Vital Signs x48h Temp Pulse Resp BP Pulse Ox 10/05/19 15:32 98.2 F 57 L 16 99/59 L 100 10/05/19 13:31 97.9 F 67 18 92/49 L 97 Intake & Output: Intake & Output 10/02/19 10/03/19 10/04/19 10/05/19 23:59 23:59 23:59 23:59 Intake Total 1100 3033.33 1952.667 Output Total 365 1705 1435 Balance 735 1328.33 517.667 - Objective General Appearance: positive: No acute distress Respiratory: positive: Chest non-tender, No respiratory distress, Breath sounds nml Cardiovascular: positive: Regular rate & rhythm Abdomen: positive: Other (Mildly tender, mainly around umbililcal port.Active bowel sounds in all quandrants.) Skin: positive: Color nml Comments/Other: HARRY drain with small serosanguinous dariange. Drained 40 cc immediately prior to exam. No foul odor or discoloration. - Lab Results Fish Bones: 10/05/19 05:15 10/05/19 05:15 Other Labs: Lab Results x24hrs 10/05/19 10/05/19 Range/Units 05:15 05:15 WBC 8.2 (4.8-10.8) x10^3/uL RBC 3.24 L (4.20-5.40) 10^6/uL Hgb 9.7 L (12.0-16.0) g/dL Hct 30.4 L (37.0-47.0) % MCV 93.8 (81.0-99.0) fL MCH 29.9 (27.0-31.0) pg MCHC 31.9 L (32.0-36.0) g/dL RDW 14.0 (12.0-15.0) % Plt Count 203 (130-450) 10^3/uL MPV 11.0 H (7.9-10.8) fL Neut # (Auto) 4.9 (1.5-6.6) 10^3/uL Lymph # (Auto) 2.6 (1.5-3.5) 10^3/uL [place] # (Auto) 0.7 (0.0-1.0) 10^3/uL Eos # (Auto) 0.1 (0.0-0.7) 10^3/uL Baso # (Auto) 0.0 (0.0-0.1) 10^3/uL Absolute Nucleated RBC 0.00 x10^3/uL Nucleated RBC % 0.0 /100WBC Sodium 137 (135-145) mmol/L Potassium 3.8 (3.5-5.0) mmol/L Chloride 110 (101-111) mmol/L Carbon Dioxide 23 (21-32) mmol/L Anion Gap 4.0 L (6-13) BUN 10 (6-20) mg/dL Creatinine 0.6 (0.4-1.0) mg/dL Estimated GFR (MDRD) 118 (>89) Glucose 93 (70-100) mg/dL Calcium 7.6 L (8.5-10.3) mg/dL Assessment/Plan - Problem List (1) Bowel perforation Impression: POD#2 s/p D&C, IUD placement, removal of prior IUD embedded in bowel and repair of bowel injury Gen Surg primary; will defer to Dr. Ventura for management plan Appears to be progressing well from MANAGER CATEGORY perspective.
[2019-10-06] MEDS ORDERED: SODIUM CHLORIDE 0.9% MINIBAG 100 ML IV ONE (00:09)
[2019-10-06] MEDS: PIPERACILLIN/TAZOBACTAM 3.375 GM in SODIUM CHLORIDE 0.9% MINIBAG 100 ML IV SCH ×3 (00:12→11:19)
[2019-10-06] MEDS: HYDROmorphone 0.5 MG/0.5 ML SYRINGE IVP PRN (01:43)
[2019-10-06] MEDS: METOCLOPRAMIDE 10 MG TABLET PO SCH ×4 (03:23→17:25)
[2019-10-06 05:39] LABS: BASOPHILS % (AUTO) 0.6 %; EOSINOPHILS # (AUTO) 0.1 10^3/uL (0.0-0.7); EOSINOPHILS % (AUTO) 1.3 %; HGB - HEMOGLOBIN 10.7 g/dL (12.0-16.0); LYMPHOCYTES % (AUTO) 31.8 %; MEAN CORPUSCULAR HEMOGLOBIN 30.1 pg (27.0-31.0); MEAN CORPUSCULAR HGB CONC 32.7 g/dL (32.0-36.0); MEAN CORPUSCULAR VOLUME 91.9 fL (81.0-99.0); MEAN PLATELET VOLUME 10.8 fL (7.9-10.8); MONOCYTES # (AUTO) 0.4 10^3/uL (0.0-1.0); MONOCYTES % (AUTO) 6.5 %; NEUTROPHILS # (AUTO) 3.8 10^3/uL (1.5-6.6); NEUTROPHILS % (AUTO) 59.5 %; PLT - PLATELET COUNT 213 10^3/uL (130-450); RED BLOOD COUNT 3.56 10^6/uL (4.20-5.40); RED CELL DISTRIBUTION WIDTH 13.2 % (12.0-15.0); WHITE BLOOD COUNT 6.4 x10^3/uL (4.8-10.8)
[2019-10-06 05:48] LABS: CALCIUM 8.1 mg/dL (8.5-10.3); CREATININE 0.6 mg/dL (0.4-1.0)
[2019-10-06] MEDS: KETOROLAC 15 MG/ML VIAL IVP PRN (08:06)
[2019-10-06] MEDS: FAMOTIDINE 20 MG/2 ML SYRINGE IVP SCH (08:06)
--- NOTE | 2019-10-06 12:27 | PROVIDER PROGRESS NOTE ---
Subjective - General Admit Date: 10/03/19 Procedure Date: 10/03/19 Post Op Days: 3 Procedure Performed: Dx lap, removal of eroded IUD, repair of colon injury - Review of Systems Wound/Incisions: positive: Healing well, No drainage Drain Type: HARRY pelvic drain Drain Output Description: SS, no gas, no foul smell Approximate mls Output: >200 ml in 24 hours General: positive: Fatigue (exhausted very tired still, sleeping all day, not eating much). negative: Fever, Chills Pulmonary: positive: No symptoms Cardiovascular: positive: No symptoms Gastrointestinal: positive: Abdominal pain (controlled with IV pain medication, not much of an appetite, only eating 25-50% of full liquid diet), Flatus (small amount, no BM yet). negative: Nausea (tolerated clears without nausea), Vomiting Genitourinary: positive: Retention (resolved) Objective - Patient Data Reviewed Vital Signs: Yes Vital Signs: Vital Signs x48h Temp Pulse Resp BP Pulse Ox 10/06/19 11:24 37.1 C 62 16 99/67 94 10/06/19 07:55 36.9 C 70 16 103/68 95 10/06/19 05:15 36.9 C 61 16 107/66 100 Intake & Output: Intake and Output Totals x24h 10/04/19 10/05/19 10/06/19 23:59 23:59 23:59 Intake Total 3033.33 2926.834 540 Output Total 1705 2805 1385 Balance 1328.33 121.834 -845 - Lab Results Lab Results: 10/06/19 05:25 10/06/19 05:25 Other Lab Results: Lab Results x24hrs 10/06/19 10/06/19 Range/Units 05:25 05:25 WBC 6.4 (4.8-10.8) x10^3/uL RBC 3.56 L (4.20-5.40) 10^6/uL Hgb 10.7 L (12.0-16.0) g/dL Hct 32.7 L (37.0-47.0) % MCV 91.9 (81.0-99.0) fL MCH 30.1 (27.0-31.0) pg MCHC 32.7 (32.0-36.0) g/dL RDW 13.2 (12.0-15.0) % Plt Count 213 (130-450) 10^3/uL MPV 10.8 (7.9-10.8) fL Neut # (Auto) 3.8 (1.5-6.6) 10^3/uL Lymph # (Auto) 2.0 (1.5-3.5) 10^3/uL [place] # (Auto) 0.4 (0.0-1.0) 10^3/uL Eos # (Auto) 0.1 (0.0-0.7) 10^3/uL Baso # (Auto) 0.0 (0.0-0.1) 10^3/uL Absolute Nucleated RBC 0.00 x10^3/uL Nucleated RBC % 0.0 /100WBC Sodium 136 (135-145) mmol/L Potassium 3.5 (3.5-5.0) mmol/L Chloride 105 (101-111) mmol/L Carbon Dioxide 23 (21-32) mmol/L Anion Gap 8.0 (6-13) BUN 6 (6-20) mg/dL Creatinine 0.6 (0.4-1.0) mg/dL Estimated GFR (MDRD) 118 (>89) Glucose 85 (70-100) mg/dL Calcium 8.1 L (8.5-10.3) mg/dL - Current Medications Current Medications: Current Medications Generic Name Dose Route Start Last Admin Trade Name Freq PRN Reason Stop Dose Admin Famotidine 20 mg 10/04/19 21:00 10/06/19 08:06 Pepcid IVP 20 mg BID LETICIA Administration Hydromorphone HCl 0.5 mg 10/03/19 17:13 10/06/19 01:43 Dilaudid Inj Syringe IVP 0.5 mg Q2H PRN Administration PAIN Piperacillin Sod/Tazobactam 100 mls @ 200 mls/hr 10/03/19 18:00 10/06/19 11:51 Sod 3.375 gm/ Sodium Chloride IV 10/28/19 06:29 Infused Q6H LETICIA Infusion Potassium Chloride/Sodium Chloride 1,000 mls @ 50 mls/hr 10/05/19 09:55 10/05/19 22:29 Normal Saline 0.9% W/40 Meq Kcl IV 50 mls/hr .Q20H LETICIA Administration Ketorolac Tromethamine 15 mg 10/03/19 17:13 10/06/19 08:06 Toradol Inj (15mg) IVP 10/08/19 17:12 15 mg Q6HR PRN Administration PAIN Metoclopramide HCl 10 mg 10/05/19 11:00 10/06/19 11:19 Reglan PO 10 mg ACHS LETICIA Administration Ondansetron HCl 4 mg 10/03/19 17:13 10/05/19 12:31 Zofran Inj IVP 4 mg Q6HR PRN Administration Nausea / Vomiting - Physical Exam Wound/Incisions: positive: Healing well, No drainage General Appearance: positive: No acute distress (attempted to see her several times, sleeping, woke her up easy to arouse) Respiratory: positive: Chest non-tender, No respiratory distress, Breath sounds nml Cardiovascular: positive: Regular rate & rhythm Abdomen: positive: Other (mild suprapubic tenderness, less distended, BS present HARRY 200cc SS fluid no gas, no foul smell or color) Extremities: positive: Nml appearance Neurologic/Psychiatric: positive: Oriented x3, Depressed mood/affect (secondary to dealing with loss) Impression/Plan - Problem List Problem List: Ada is a very pleasant 29 yo who is POD #3 s/p primary colon repair secondary to IUD injury. She is clinically stable and her bowel function is slowly returning. 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 However, given the HARRY drain output and cramps I would like to slowly progress her diet and will plan to monitor her another 24 hours prior to consideration of D/C home. She understands this plan.
[2019-10-06] MEDS ORDERED: HYDROmorphone 2 MG TABLET PO PRN (12:32)
[2019-10-06] MEDS: IBUPROFEN 600 MG TABLET PO SCH ×3 (13:12→23:34)
--- NOTE | 2019-10-06 14:19 | CONSULTATION NOTE ---
Referring Provider Name of Referring Provider:: Dr. Strong Consult Date: 10/03/19 History of Present Illness - History Obtained From Records Reviewed: old and current records History obtained from: records, Dr. Strong and the patient after phase II recovery Exam Limitations: Patient intubated in the OR - History of Present Illness HPI Comment/Other: Ada is a patient I had not met prior to the procedure, I was asked for an intra-operative consult by Dr. Strong when she found that a prior placed IUD was deeply imbedded between the lower uterine posterior wall and the anterior wall of the colon. I was asked to patient assistant with surgery with adhesiolysis and identification/removal of the IUD and when it was concerning that one of the arms the IUD had eroded into the anterior wall was asked to take over as primary. Following surgery review of her records and discussion with Dr. Strong and the patient revealed the patient had a paraguard IUD placed around 6-8 weeks post after the delivery of her now 20 month old. She didn't have any issues, was not having periods until about her child was 16 months and they she states she started having painful periods and was bleeding and following started having issues with her bowel with off and on constipation. The bowel issues became worse recently but then she had a positive test and thought it might be related to the . Dr. Manrique states she was called about the patient yesterday for new with IUD in place and obtained an US which was read as an IUD in the lower uterine segment. After discussing the situation with the patient she elected to take her to the OR earlier today for IUD retreival. She states she was unable to find the IUD and required soft insuflation on the uterus and still could not find the IUD, and full D&C was preformed and still no IUD and no signs of intrauterine issues. The was cleared and a new IUD was placed. A post procedure xray was obtained which showed the two IUD's one on top of the other. Review of the US and the x-ray and review of the hysteroscopy procedure made it concerning that the IUD might be intra abdominal and after speaking with the patient she took her back to the OR for diagnostic laparoscopy. It was during this surgery that I was called into the OR (for further detail of findings please refer to the operative reports). 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 - POLST Patient has POLST: No Meds/Allgy - Home Medications Home Medications: Ambulatory Orders Medication Instructions Recorded Confirmed No Known Home Medications 01/23/18 10/03/19 - Allergies Allergies/Adverse Reactions: Allergies Allergy/AdvReac Type Severity Reaction Status Date / Time Sulfa (Sulfonamide Allergy Severe Rash Verified 06/25/13 09:27 Antibiotics) Review of Systems - All Other Systems All Other Systems: reports: Other (unobtainable at the time, patient intubated in the operating room) Exam - Vital Signs Reviewed Vital Signs: Yes Vital Signs: Vital Signs x48h Temp Pulse Resp BP Pulse Ox 10/06/19 11:24 37.1 C 62 16 99/67 94 10/06/19 07:55 36.9 C 70 16 103/68 95 - Physical Exam Comments/Other: Patient intubated on the operating room table, in lithotomy, prepped and drapped with Dr. Manrique at the OR table preforming diagnostic laparoscopy Conclusion and Plan - Lab Results Laboratory Results 10/06/19 05:25: Sodium 136, Potassium 3.5, Chloride 105, Carbon Dioxide 23, Anion Gap 8.0, BUN 6, Creatinine 0.6, Estimated GFR (MDRD) 118, Glucose 85, Calcium 8.1 L 10/06/19 05:25: WBC 6.4, RBC 3.56 L, Hgb 10.7 L, Hct 32.7 L, MCV 91.9, MCH 30.1, MCHC 32.7, RDW 13.2, Plt Count 213, MPV 10.8, Neut # (Auto) 3.8, Lymph # (Auto) 2.0, [place] # (Auto) 0.4, Eos # (Auto) 0.1, Baso # (Auto) 0.0, Absolute Nucleated RBC 0.00, Nucleated RBC % 0.0 10/05/19 05:15: Sodium 137, Potassium 3.8, Chloride 110, Carbon Dioxide 23, Anion Gap 4.0 L, BUN 10, Creatinine 0.6, Estimated GFR (MDRD) 118, Glucose 93, Calcium 7.6 L 10/05/19 05:15: WBC 8.2, RBC 3.24 L, Hgb 9.7 L, Hct 30.4 L, MCV 93.8, MCH 29.9, MCHC 31.9 L, RDW 14.0, Plt Count 203, MPV 11.0 H, Neut # (Auto) 4.9, Lymph # (Auto) 2.6, [place] # (Auto) 0.7, Eos # (Auto) 0.1, Baso # (Auto) 0.0, Absolute Nucleated RBC 0.00, Nucleated RBC % 0.0 - Diagnostic Imaging Results Diagnostic Imaging Results: positive: Final report reviewed, Read independently Diagnostic Imaging Results Comments: review of US images reveals the IUD to be laying in an odd angle that is not expected with an intrauterine placement and is found posterior to the uterus and not inside the uterus or within the uterine wall but centrally outside of the posterior wall closely adherent to the adjacent bowel wall with the tail of the IUD to be superior and towards the right side and the arms inferior to the patient's left side and with one arm possibly embedded in the outer layer of the uterine wall and the other possibly within the bowel itself or at minimum closely adherent abd x-ray reveals two IUD's the upper one at a 90 degree angle and rotated on it's side (consistent with the IUD seen on the US outside the uterus) and the lower IUD is in the typical intrauterine position and most likely represents the recently placed IUD by Dr. Manrique - Diagnosis Diagnosis: IUD outside of the uterus embedded in the anterior colon wall and the sigmorectal junction with one arm erroded into the colon. - Plan Plan: The IUD was dissected free and the colonic injury was repaired primarlly in 2 layers and drain was placed. Plan to keep on IV abx, IVF, supportive care and await BF return. Patient seen at the bedside with Dr. Strong. An in depth discussion with a detailed explanation the findings and what we decided and preformed at surgery with the IUD was embedded and eroded into the colon and explanation that we contacted her sister intraoperative to decide on primary repair without ostomy vs primary repair with diverting ostomy. She expressed agreement with out decision and stated "thank you for giving me a chance without the bag" she understands that the closure may fail and she may need further surgery and ostomy formation. We discussed the chances and what we would be watching for over the next several days. The patient understands this plan and is in agreement with it.
[2019-10-06] MEDS: AMOX/CLAV 875 MG/125 MG TABLET PO SCH (17:25)
--- NOTE | 2019-10-06 21:14 | PROVIDER PROGRESS NOTE ---
Subjective - Prog Note Date Prog Note Date: 10/06/19 Prog Note Time: 20:30 - Subjective Pt reports feeling: Improved Subjective: Patient improving. Able to eat some potatoes and turkey at pm meal. Limiting intake 2/2 some discomfort with po intake. No nausea/vomiting. More consistent flatus and one loose stool. Up and ambulating. Pain well managed and improving per patient perspective. Up and ambulating within the room. Objective - Vital Signs/Intake & Output Vital Signs: Vital Signs x48h Temp Pulse Resp BP Pulse Ox 10/06/19 17:00 98.4 F 68 17 103/72 99 Intake & Output: Intake & Output 10/03/19 10/04/19 10/05/19 10/06/19 23:59 23:59 23:59 23:59 Intake Total 1100 3033.33 2926.834 1780 Output Total 365 1705 2805 2957 Balance 735 1328.33 121.834 -1177 - Objective General Appearance: negative: No acute distress Respiratory: positive: No respiratory distress, Breath sounds nml Cardiovascular: positive: Other (RR) Abdomen: positive: Other (Less TTP relative to prior exam. Non-distended. Port sites CDI. HARRY drain with minimal serosang drainage.) Extremities: positive: Non-tender, No pedal edema - Lab Results Fish Bones: 10/06/19 05:25 10/06/19 05:25 Other Labs: Lab Results x24hrs 10/06/19 10/06/19 Range/Units 05:25 05:25 WBC 6.4 (4.8-10.8) x10^3/uL RBC 3.56 L (4.20-5.40) 10^6/uL Hgb 10.7 L (12.0-16.0) g/dL Hct 32.7 L (37.0-47.0) % MCV 91.9 (81.0-99.0) fL MCH 30.1 (27.0-31.0) pg MCHC 32.7 (32.0-36.0) g/dL RDW 13.2 (12.0-15.0) % Plt Count 213 (130-450) 10^3/uL MPV 10.8 (7.9-10.8) fL Neut # (Auto) 3.8 (1.5-6.6) 10^3/uL Lymph # (Auto) 2.0 (1.5-3.5) 10^3/uL [place] # (Auto) 0.4 (0.0-1.0) 10^3/uL Eos # (Auto) 0.1 (0.0-0.7) 10^3/uL Baso # (Auto) 0.0 (0.0-0.1) 10^3/uL Absolute Nucleated RBC 0.00 x10^3/uL Nucleated RBC % 0.0 /100WBC Sodium 136 (135-145) mmol/L Potassium 3.5 (3.5-5.0) mmol/L Chloride 105 (101-111) mmol/L Carbon Dioxide 23 (21-32) mmol/L Anion Gap 8.0 (6-13) BUN 6 (6-20) mg/dL Creatinine 0.6 (0.4-1.0) mg/dL Estimated GFR (MDRD) 118 (>89) Glucose 85 (70-100) mg/dL Calcium 8.1 L (8.5-10.3) mg/dL Assessment/Plan - Problem List (1) Bowel perforation Impression: POD#3 s/p D&C, hysteroscopy, IUD placement, laparoscopic retrieval of foreign body, adhesiolysis, repair of bowel injury 2/2 embedded IUD. Improving. Doing well from BLUEPRINT READER perspective Reviewed basic discharge instructions from BLUEPRINT READER perspective in anticipation of possible am DC per GS notes Defer management to primary service/Gen Surg
[2019-10-06] MEDS: FAMOTIDINE 20 MG TABLET PO SCH (22:16)
[2019-10-06] MEDS ORDERED: NS W/20 MEQ KCL 1,000 ML IV SCH (23:00)
[2019-10-07] MEDS: HYDROmorphone 0.5 MG/0.5 ML SYRINGE IVP PRN (02:54)
[2019-10-07 05:36] LABS: HGB - HEMOGLOBIN 10.4 g/dL (12.0-16.0); MEAN CORPUSCULAR HEMOGLOBIN 29.2 pg (27.0-31.0); MEAN CORPUSCULAR HGB CONC 32.8 g/dL (32.0-36.0); MEAN PLATELET VOLUME 11.1 fL (7.9-10.8); RED BLOOD COUNT 3.56 10^6/uL (4.20-5.40); RED CELL DISTRIBUTION WIDTH 13.2 % (12.0-15.0); WHITE BLOOD COUNT 6.5 x10^3/uL (4.8-10.8)
[2019-10-07] MEDS: IBUPROFEN 600 MG TABLET PO SCH ×2 (06:09→11:51)
[2019-10-07] MEDS: METOCLOPRAMIDE 10 MG TABLET PO SCH ×2 (06:09→11:51)
[2019-10-07] MEDS: AMOX/CLAV 875 MG/125 MG TABLET PO SCH (08:07)
[2019-10-07] MEDS: FAMOTIDINE 20 MG TABLET PO SCH (08:08)
--- NOTE | 2019-10-07 09:43 | Discharge Plan ---
Discharge Plan Problem Reviewed?: Yes Disposition: Home, Self Care Prescriptions: HYDROmorphone [Dilaudid] 1 - 2 tab PO Q4HR PRN #20 tablet PRN Reason: Pain Ibuprofen [Motrin] 600 mg PO Q6HR #30 tablet Amox/Clav 875/125 [Augmentin 875/125] 1 tab PO BIDWM 3 Days #7 tablet Metoclopramide [Reglan] 10 mg PO AC #30 tablet Diet: Regular Activity Restrictions: Activity as Tolerated Shower Restrictions: No (No bathing, soaking, hot tubs or pools for 6 weeks) Driving Restrictions: Yes (No driving while on pain medications) Weight Bearing: Full Weight No Smoking: If you smoke, Please STOP! Call for help. Follow-up with: Clemencia Strong MD [Provider Admit Priv/Credential] - 1 Week Fátima Adhikari MD [Provider Admit Priv/Credential] - 2 Weeks
--- NOTE | 2019-10-07 09:47 | DISCHARGE SUMMARY ---
"Discharge Summary Admit Date: 10/03/19 Discharge Date: 10/07/19 Discharging Provider: Racheal Ventura MD Primary Care Provider: Clemencia Strong MC Code Status: Attempt Resuscitation Condition at Discharge: Good Discharge Disposition: 01 Home, Self Care - DIAGNOSES Admission Diagnoses: Colon injury secondary to IUD Discharge Diagnoses with Status of Each Condition: same - HPI History of Present Illness: Ada is a patient I had not met prior to the procedure, I was asked for an intra-operative consult by Dr. Strong when she found that a prior placed IUD was deeply imbedded between the lower uterine posterior wall and the anterior wall of the colon. I was asked to registered nurse first assistant with surgery with adhesiolysis and identification/removal of the IUD and when it was concerning that one of the arms the IUD had eroded into the anterior wall was asked to take over as primary. Following surgery review of her records and discussion with Dr. Strong and the patient revealed the patient had a paraguard IUD placed around 6-8 weeks post after the delivery of her now 20 month old. She didn't have any issues, was not having periods until about her child was 16 months and they she states she started having painful periods and was bleeding and following started having issues with her bowel with off and on constipation. The bowel issues became worse recently but then she had a positive test and thought it might be related to the . Dr. Manrique states she was called about the patient yesterday for new with IUD in place and obtained an US which was read as an IUD in the lower uterine segment. After discussing the situation with the patient she elected to take her to the OR earlier today for IUD retreival. She states she was unable to find the IUD and required soft insuflation on the uterus and still could not find the IUD, and full D&C was preformed and still no IUD and no signs of intrauterine issues. The was cleared and a new IUD was placed. A post procedure xray was obtained which showed the two IUD's one on top of the other. Review of the US and the x-ray and review of the hysteroscopy procedure made it concerning that the IUD might be intra abdominal and after speaking with the patient she took her back to the OR for diagnostic laparoscopy. It was during this surgery that I was called into the OR (for further detail of findings please refer to the operative reports). - CONSULTS | PROCEDURES Procedures: Diagnostic laparoscopy, 90 minute of lysis of adhesions with removal of imbedded foreign body (prior placed paragaurd IUD) that had eroded into the anterior colonic wall at the recto-sigmoid junction, rigid proctoscope, primary repair of anterior colon wall injury and drain placement - HOSPITAL COURSE Hospital Course: Patient underwent Diagnostic laparoscopy, 90 minute of lysis of adhesions with removal of imbedded foreign body (prior placed paragaurd IUD) that had eroded into the anterior colonic wall at the recto-sigmoid junction, rigid proctoscope, primary repair of anterior colon wall injury and drain placement on 10/03/2019. She was admitted for post operative care with IV abx, IVf, and supportive care to await return of bowel function. By POD #3 she was passing gas and was nausea free and doing well and her diet was advance she was changed over from IV abx and pain medication to po and was monitored over night. She did well and on POD #4 was deemed stable for discharge to home. - ALLERGIES Allergies/Adverse Reactions: Allergies Allergy/AdvReac Type Severity Reaction Status Date / Time Sulfa (Sulfonamide Allergy Severe Rash Verified 06/25/ 09:27 Antibiotics) - MEDICATIONS Home Medications: Ambulatory Orders Medication Instructions Recorded Confirmed Amox/Clav 875/125 [Augmentin 1 tab PO BIDWM 3 Days #7 tablet 10/07/19 875/125] HYDROmorphone [Dilaudid] 1 - 2 tab PO Q4HR PRN #20 tablet 10/07/19 Ibuprofen [Motrin] 600 mg PO Q6HR #30 tablet 10/07/19 Metoclopramide [Reglan] 10 mg PO AC #30 tablet 10/07/19 - PHYSICAL EXAM AT DISCHARGE General Appearance: positive: No acute distress Eyes Bilateral: positive: Normal inspection Neck: positive: Nml inspection Respiratory: positive: No respiratory distress, Breath sounds nml Cardiovascular: positive: Regular rate & rhythm Abdomen: positive: Non-tender, Nml bowel sounds, No distention, Other (HARRY SS fluid 40 in last 24 hours no gas, no foul smell, removed prior to d/c home) Extremities: positive: Full ROM, Nml appearance Neurologic/Psychiatric: positive: Oriented x3, Mood/affect nml (much better mood and affect this am) - LABS Result Diagrams: 10/07/19 05:05 10/06/19 05:25 - FOLLOW UP Follow Up: Follow up with Dr. Strong in 1 week Follow up with surgery (Dr. Adhikari/Dr. Segal) in 2 weeks"
[2019-10-07 13:22] VITALS: BP 105/58
== END 2019-10-07 14:47 | disposition home or self-care (01) | DRG 982 ==
LOC: SDS 06:12 → MS2 17:13 → SDS 17:49
PROVIDERS: ADMIT Surgery; ATTEND Surgery
PROC: 10A08ZZ Abortion of Products of Conception, Via Natural or Artificial Opening Endoscopic (ICD-10-PCS; 2019-10-03)
PROC: 0UH97HZ Insertion of Contraceptive Device into Uterus, Via Natural or Artificial Opening (ICD-10-PCS; 2019-10-03)
PROC: 0DC Gastrointestinal System, Extirpation (ICD-10-PCS; principal; 2019-10-03 07:30)
DX: T83.32XA Displacement of intrauterine contraceptive device, initial encounter (principal); S36.593A Other injury of sigmoid colon, initial encounter; S36.533A Laceration of sigmoid colon, initial encounter; X58.XXXA Exposure to other specified factors, initial encounter; Y84.8 Other medical procedures as the cause of abnormal reaction of the patient, or of later complication, without mention of misadventure at the time of the procedure; N73.6 Female pelvic peritoneal adhesions (postinfective); Z30.430 Encounter for insertion of intrauterine contraceptive device
CPT/HCPCS: 36415; 74018; 80048; 85025; 85027; A9270; J0131; J0690; J1170; J7120

== ENCOUNTER 2020-03-07 07:00 | Outpatient (CLI) | payer MEDICAID ==
[2020-03-07 22:26] LABS: CANDIDA GROUP DNA NEGATIVE (NEGATIVE); CANDIDA KRUSEI DNA NEGATIVE (NEGATIVE); TRICHOMONAS VAGINALIS DNA NEGATIVE (NEGATIVE)
== END 2020-03-07 23:59 | disposition home or self-care (01) ==
LOC: LAB.R 07:00
PROVIDERS: ATTEND Obstetrics & Gynecology
DX: N89.8 Other specified noninflammatory disorders of vagina (principal)
CPT/HCPCS: 87661; 87801

== ENCOUNTER 2020-04-08 10:16 | Emergency (ER) | payer MEDICAID ==
[2020-04-08 10:45] LABS: BILIRUBIN,URINE NEGATIVE (NEGATIVE); GLUCOSE, URINE (UA) NEGATIVE (NEGATIVE); KETONES,URINE (UA) NEGATIVE (NEGATIVE); LEUKOCYTE ESTERASE, URINE SMALL (NEGATIVE); NITRITE,URINE NEGATIVE (NEGATIVE); OCCULT BLOOD,URINE MODERATE (NEGATIVE); PH,URINE 5.5 PH (5.0-7.5); PROTEIN,URINE 100 mg/dL (NEGATIVE); UROBILINOGEN,URINE 0.2 (NORMAL) E.U./dL (NORMAL)
[2020-04-08 10:50] LABS: CLARITY,URINE CLOUDY (CLEAR)
[2020-04-08 10:51] LABS: HCG UR QUAL NEGATIVE
[2020-04-08 11:11] LABS: BACTERIA,URINE Moderate /HPF (None Seen); SQUAMOUS EPITHELIAL CELL,UR MANY Squamous (<= Few)
[2020-04-08 11:12] LABS: MUCUS,URINE Few Strands
--- NOTE | 2020-04-08 11:23 | ED Physician Documentation ---
PD HPI FEMALE - Stated complaint Stated Complaint: FEMALE - Chief complaint Chief Complaint: UTI - History obtained from History obtained from: Patient - History of Present Illness Timing - onset: How many days ago (2-3) Timing - duration: Days (2-3) Timing - details: Gradual onset, Still present Associated symptoms: Back pain (some in right flank area), Dysuria, Urinary frequency. No: Fever, Abdominal pain, Vaginal discharge (not currently, had some 3 weeks ago but improved.) Contributing factors: No: , Exposed to STD Similar symptoms before: Diagnosis (UTI remotely. She states her BV symptoms 3 weeks ago were different.) Recently seen: Clinic ([facility] and diagnosed with bacterial vaginitis by vaginal testing. Treated with metronidazole and felt improved though developed a yeast infection that she treated with OTC topical and better. Now dysuria symptoms for 2-3 days.) Review of Systems Constitutional: denies: Fever, Chills, Myalgias Nose: denies: Rhinorrhea / runny nose, Congestion Throat: denies: Sore throat Respiratory: denies: Cough GI: denies: Nausea, Vomiting, Diarrhea : reports: Dysuria, Frequency. 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 - Present Medications Home Medications: Ambulatory Orders Medication Instructions Recorded Confirmed Amox/Clav 875/125 [Augmentin 1 tab PO BIDWM 3 Days #7 tablet 10/07/19 875/125] HYDROmorphone [Dilaudid] 1 - 2 tab PO Q4HR PRN #20 tablet 10/07/19 Ibuprofen [Motrin] 600 mg PO Q6HR #30 tablet 10/07/19 Metoclopramide [Reglan] 10 mg PO AC #30 tablet 10/07/19 Cephalexin [Keflex] 500 mg PO TID #18 capsule 04/08/20 Fluconazole [Diflucan] 150 mg PO Q3D #2 tablet 04/08/20 - Allergies Allergies/Adverse Reactions: Allergies Allergy/AdvReac Type Severity Reaction Status Date / Time Sulfa (Sulfonamide Allergy Severe Rash Verified 04/08/20 10:27 Antibiotics) - Living Situation Living Arrangement: reports: At home - Social History Does the pt smoke?: No Smoking Status: Never smoker Does the pt drink ETOH?: No Does the pt have substance abuse?: No - Family History Family history: reports: Non contributory - Immunizations Immunizations are current?: Yes - POLST Patient has POLST: No PD ED PE NORMAL - Vitals Vital signs reviewed: Yes - General General: Alert and oriented X 3, No acute distress, Well developed/nourished - Abdomen Abdomen: Soft, Non tender - Female Female : Deferred - Rectal Rectal: Deferred - Back Back: Other (mild right CVA tender) - Derm Derm: Normal color, Warm and dry Results - Vitals Vitals: Vital Signs - 24 hr 04/08/20 04/08/20 10:21 12:12 Temperature 36.9 C 36.7 C Heart Rate 91 75 Respiratory 17 18 Rate Blood Pressure 127/96 H 110/72 O2 Saturation 98 100 Oxygen O2 Source Room air - Labs Labs: Laboratory Tests 04/08/20 04/08/20 10:29 10:29 Urine Color YELLOW Urine Clarity CLOUDY Urine pH 5.5 Ur Specific [place] 1.025 1.025 Urine Protein 100 H Urine Glucose (UA) NEGATIVE Urine Ketones NEGATIVE Urine Occult Blood MODERATE H Urine Nitrite NEGATIVE Urine Bilirubin NEGATIVE Urine Urobilinogen 0.2 (NORMAL) Ur Leukocyte Esterase SMALL H Urine RBC 11-25 H Urine WBC >25 H Ur Squamous Epith Cells MANY Squamous H Urine Bacteria Moderate H Urine Mucus Few Strands Ur Microscopic Review INDICATED Urine Culture Comments NOT INDICATED Urine HCG, Qual NEGATIVE Departure - Departure Disposition: 01 Home, Self Care Clinical Impression: Dysuria Urinary tract infection Qualifiers: Urinary tract infection type: acute cystitis Hematuria presence: without hematuria Qualified Code(s): N30.00 - Acute cystitis without hematuria Condition: Stable Record reviewed to determine appropriate education?: Yes Instructions: ED UTI Cystitis Female Follow-Up: Clemencia Strong MD [Provider Admit Priv/Credential] - Prescriptions: Fluconazole [Diflucan] 150 mg PO Q3D #2 tablet Cephalexin [Keflex] 500 mg PO TID #18 capsule Comments: Stay well-hydrated. Tylenol or ibuprofen if needed for pains. Cephalexin antibiotic 3 times a day for 6 days for bladder infection. Diflucan antifungal every 3 days for 2 doses to reduce chance of yeast infection with the antibiotics. Recheck if not improved well over the next several days and resolved by 3 to 5 days. Discharge Date/Time: 04/08/20 12:33
[2020-04-08] MEDS ORDERED: cephALEXin 250 MG CAPSULE PO STA (11:55)
[2020-04-08 12:13] VITALS: BP 110/72
== END 2020-04-08 12:33 | disposition home or self-care (01) ==
LOC: ED 10:16
DX: N30.00 Acute cystitis without hematuria (principal)
CPT/HCPCS: 81001; 81025; 99283; 99284; A9270; 81003; 87086

== ENCOUNTER 2020-05-05 15:44 | Outpatient (CLI) | payer MEDICAID ==
--- NOTE | 2020-05-05 16:52 | Ultrasound Report ---
PROCEDURE: OB First Trimester w/TV INDICATIONS: POSITIVE TEST, IUD SURVEILLANCE OUTSIDE/PRIOR DATING DATA: Last menstrual period (LMP): Unknown. LMP-based estimated date of delivery (ANGEL): Unknown. First dating scan (date and location): 05/05/2020. Estimated date of delivery (ANGEL) from first dating scan: Not applicable. TECHNIQUE: Real-time scanning was performed of the fetus and maternal pelvic organs, with image documentation. Endovaginal scanning was also performed to better visualize the fetus and maternal ovaries. COMPARISON: None FINDINGS: Embryo: There is a questionable gestational sac identified measuring approximately 5 mm. No po le or yolk sac is identified. Measurement variability in dating: +/- 4 weeks by LMP, +/- 7 days by mean sac diameter (use before 6 weeks gestation if crown-rump length not able to be measured), +/- 5 days by crown-rump length (6-12 weeks gestation). Maternal organs: Ovaries demonstrate appearance of what appears to be a corpus luteal cyst on the ri ght.. Limited images through the kidneys demonstrate no hydronephrosis. No IUD is identified. IMPRESSION: 1. Possible 5 mm gestational sac within the uterus. No IUD is identified. 2. Hypoechoic focus within the right ovary suggestive of corpus luteal cyst. However, recommend corre lation to beta hCG levels and short interval imaging follow-up as findings are overall nonspecific wi thin the uterus and ovary. Follow-up is recommended to correlate with beta hCG levels and interval im aging to exclude presence of ectopic. Reviewed by: Bettina Price MD on 05/05/2020 4:50 PM PST Approved by: Bettina Price MD on 05/05/2020 4:50 PM PST Station ID: [id number]
== END 2020-05-05 15:45 | disposition home or self-care (01) ==
LOC: DI 15:44
PROVIDERS: ATTEND Obstetrics & Gynecology
DX: Z30.431 Encounter for routine checking of intrauterine contraceptive device (principal); Z32.01 Encounter for pregnancy test, result positive; R93.89 Abnormal findings on diagnostic imaging of other specified body structures
CPT/HCPCS: 76801; 76817

== ENCOUNTER 2020-05-06 15:09 | Outpatient (CLI) | payer MEDICAID | END 2020-05-06 23:59 | disposition home or self-care (01) | LOC: LAB 15:09 | PROVIDERS: ATTEND Obstetrics & Gynecology | DX: Z32.01 Encounter for pregnancy test, result positive (principal); Z97.5 Presence of (intrauterine) contraceptive device | CPT/HCPCS: 36415; 84702 ==

== ENCOUNTER 2020-05-09 15:23 | Outpatient (CLI) | payer MEDICAID | END 2020-05-09 15:24 | disposition home or self-care (01) | LOC: LAB 15:23 | PROVIDERS: ATTEND Obstetrics & Gynecology | DX: Z32.01 Encounter for pregnancy test, result positive (principal); Z97.5 Presence of (intrauterine) contraceptive device | CPT/HCPCS: 36415; 84702 ==

== ENCOUNTER 2020-05-20 12:17 | Outpatient (CLI) | payer MEDICAID ==
--- NOTE | 2020-05-20 13:21 | Ultrasound Report ---
PROCEDURE: OB First Trimester INDICATIONS: POSITIVE TEST OUTSIDE/PRIOR DATING DATA: Last menstrual period (LMP): 03/23/2020 (questionable). LMP-based estimated date of delivery (ANGEL): 12/28/2020. First dating scan (date and location): 05/05/2020. Estimated date of delivery (ANGEL) from first dating scan: Uncertain TECHNIQUE: Real-time scanning was performed of the fetus and maternal pelvic organs, with image documentation. COMPARISON: 05/15/2020 FINDINGS: Embryo: There is a gestational sac measuring approximately 2.6 cm at the uterine fundus. This corres ponds to a gestational age of 7 weeks 4 days. There is a tiny fetus within the gestational sac measur ing 8 mm in crown-rump length. This corresponds to a gestational age of 6 weeks 5 days. Composite ges tational age is 6 weeks 5 days. Heart rate is detected at 128 bpm. Measurement variability in dating: +/- 4 weeks by LMP, +/- 7 days by mean sac diameter (use before 6 weeks gestation if crown-rump length not able to be measured), +/- 5 days by crown-rump length (6-12 weeks gestation). Maternal organs: Ovaries unremarkable. Limited images through the kidneys demonstrate no hydronephr osis. IMPRESSION: Single living intrauterine gestation with average ultrasound age of 6 weeks 5 days. Reviewed by: Rusty Sheppard MD on 05/20/2020 1:20 PM PST Approved by: Rusty Sheppard MD on 05/20/2020 1:20 PM PST Station ID: [id number]
== END 2020-05-20 12:18 | disposition home or self-care (01) ==
LOC: DI 12:17
PROVIDERS: ATTEND Obstetrics & Gynecology
DX: Z32.01 Encounter for pregnancy test, result positive (principal)

== ENCOUNTER 2020-06-16 10:30 | Outpatient (CLI) | payer MEDICAID ==
[2020-06-16 11:13] LABS: HGB - HEMOGLOBIN 11.5 g/dL (12.0-16.0); MEAN CORPUSCULAR HEMOGLOBIN 30.2 pg (27.0-31.0); MEAN CORPUSCULAR HGB CONC 33.3 g/dL (32.0-36.0); MEAN CORPUSCULAR VOLUME 90.6 fL (81.0-99.0); MEAN PLATELET VOLUME 11.1 fL (7.9-10.8); RED BLOOD COUNT 3.81 10^6/uL (4.20-5.40); WHITE BLOOD COUNT 9.2 x10^3/uL (4.8-10.8)
[2020-06-16 12:19] LABS: FREE T4 (FREE THYROXINE) 1.08 ng/dL (0.58-1.64)
== END 2020-06-16 10:31 | disposition home or self-care (01) ==
LOC: LAB 10:30
PROVIDERS: ATTEND Obstetrics & Gynecology
DX: Z01.812 Encounter for preprocedural laboratory examination (principal); O99.341 Other mental disorders complicating pregnancy, first trimester; F31.30 Bipolar disorder, current episode depressed, mild or moderate severity, unspecified; Z20.828 Contact with and (suspected) exposure to other viral communicable diseases
CPT/HCPCS: 36415; 84439; 84443; 85027; 86900; 86901

== ENCOUNTER 2020-06-16 10:38 | Outpatient (CLI) | payer MEDICAID ==
--- NOTE | 2020-06-16 11:29 | XRAY Report ---
PROCEDURE: Abdomen 1 View X-Ray INDICATIONS: IUD PLACEMENT TECHNIQUE: 1 view of the abdomen were acquired. COMPARISON: None. FINDINGS: Surgical changes and devices: None. Bowel: No pneumoperitoneum. The bowel gas pattern is normal. Soft tissues: No masses; visualized solid organ contours appear normal in size. No suspicious abdom inal calcifications. IUD not visualized. Bones: Mild levocurvature and lumbar spondylosis.. IMPRESSION: IUD is not visualized. Reviewed by: Robbie Landry MD on 06/16/2020 11:27 AM PST Approved by: Robbie Landry MD on 06/16/2020 11:27 AM PST Station ID: [id number]
== END 2020-06-16 10:39 | disposition home or self-care (01) ==
LOC: DI 10:38
PROVIDERS: ATTEND Obstetrics & Gynecology
DX: Z30.431 Encounter for routine checking of intrauterine contraceptive device (principal)

== ENCOUNTER 2020-06-18 10:16 | Day surgery (SDC) | payer MEDICAID ==
--- NOTE | 2020-06-18 02:02 | HISTORY & PHYSICAL EXAMINATION ---
HPI - Admitted From Admitted from: Direct admit - History of Present Illness HPI Comment/Other: Patient is a 29 yo at 10w4d ega by first trimester us here for TAB evaluation. Patient had a Paraguard IUD placed after a prior IUD had perforated the uterus and embedded itself in her bowel, requiring srugical repair. She had been undergoing Q3-4 month IUD strings checks, with her last check in February. Since then, she has become . IUD was not seen in the uterus. Initially, she planned on continuing the and opted to forego abd xray to assess for abdominal positioning of the iUD. Today she is quite distraught. She has untreated BPD and is strugllign with depression and suicidal ideation. She is a single mother of 4 children and is struggling financially with supporting children. She is overwhelmed with the possibility of a 5th child. She is also struggling with suicidal ideation. She can't sleep at night as she thinks about self-harm. She will not allow herself to harm herself becuase she cannot leave her children without a parent. She contracts for safety today. She wants to move forward with a termnation of . She is 10w4d, which is slightly too far along for medical termination. She is reaady to proceed with surgical termination. She is also willing to under abdomial x-ray so that IUD can be removed form the abdomen if a second IUD migrated. Confrimed RH positive. PMH: depression w/o medication PSH: d&C, wisdom teeth, ORIF D&C Laparoscopic removal of IUD, repair of bowel injury 2/2 implanted IUD. OBHX: H/O 3 vaginal del. First PPROM at 34 wks. Induced, 14 hour labor with distress. Infant born without a pulse and resuscitated. Baby 2 weeks in NICU; septic from chorio but not certain. 2nd preg complicated by PTL at 36 wks. PROM and delivered 45 min later. 3rd preg term vag del at 37 wks after spontaneous labor. No supplemental PG in any pregnancies. Hx of CT/trich HPV. Has acquired a new partner in the last year. ASCUS pap/HPV neg 09/2019 Confirmed to be Rh positive. Allergies: SULFA (Critical) Medications: SEROQUEL 50 MG ORAL TABLET (QUETIAPINE FUMARATE) Take one tablet by mouth at bedtime daily; Route: ORAL PRE- FORMULA ORAL TABLET ( [id number]) Take one tablet by mouth once a day; Route: ORAL METOCLOPRAMIDE HCL 5 MG ORAL TABLET (METOCLOPRAMIDE HCL) Take 1-2 tablets by mouth every 6 hours as needed; Route: ORAL PARAGARD INTRAUTERINE COPPER INTRAUTERINE INTRAUTERINE DEVICE (COPPER) ; Route: INTRAUTERINE Problems: Suicidal ideation (ICD-V62.84) (NFO94-X51.851) Encounter for supervision of other normal , first trimester (ICD10- Z34.81) Preoperative examination (ICD-V72.84) (NMF54-G62.818) Bipolar 1 disorder, depressed (ICD-296.50) (ZDA15-N97.30) Screening examination for venereal disease (ICD-V74.5) (BNS06-H01.3) screening,other specified (ICD-V28.8) (MCE74-A86.89) Other bipolar disorder (ICD-296.40) (CMW18-Y72.89) ADHD (ICD-314.01) (COB86-X49.9) Vaginal discharge (ICD-623.5) (DQC71-P37.8) Postoperative examination (ICD-V67.00) (FXQ47-R87) IUD surveillance (ICD-V25.42) (VXS07-T26.431) Screening for cervical cancer (ICD-V76.2) (CJN70-L79.4) Presence of intrauterine contraceptive device (ICD-V45.51) (FCK05-N92.5) test positive (ICD-V72.42) (RSX46-Z77.01) Encounter for screening for respiratory tuberculosis (ICD-V74.1) (FDT61-L99.1) Encounter for issue of other medical certificate (ICD-V68.09) (CRQ27-V95.79) Pre-employment exam (ICD-V70.5) (TRV47-J05.1) Preventative health care (ICD-V70.0) (LPU72-X81.00) Generalized anxiety disorder (ICD-300.02) (VAU90-D48.1) Risk Factors: Smoked Tobacco Use: Never smoker Passive Smoke Exposure: no HIV High Risk Behavior: no Caffeine Use: 3 drinks per day Exercise: yes Times/wk: 7 Type of Exercise: chasing kids, gym Seatbelt Use: 100 % Sun Exposure: frequently Alcohol Use: no Drug Use: no Vital Signs: Patient Profile: 29 Years Old Female Height: 63 inches Weight: 113 pounds BMI: 20.09 Cuff size: regular Vitals Entered By: JOSÉ MIGUEL Altman (June 16, 2020 9:22 AM) Questionnaire Would you like to become in the next year? 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 Flowsheet View for Follow-up Visit Estimated weeks of gestation: 10 4 Weight: 113 Physical Constitutional: GEN: NAD HEAD: NCAT EYES: No scleral icterus or conjunctival injection NECK: No cervical LAD or TM CV: RRR RESP: CTAB, normal effort ABD: S&NT/ND PSYCH: appropriate affect NEURO: alert and oriented, normal gait and coordination EXT: WWP TAUS shows viable IUP Impression & Recommendations: Problem # 1: Preoperative examination (ICD-V72.84) (RPH68-Q10.818) Orders: CBC AND PLATELETS w/o DIFF (CPT-21903) COVID19 Testing (CPT-39140) 97776 OV Est Detailed (CPT-28726) Options counseling regarding Patient opting for TAB R/B/A were reviewed with patient. She would wants to proceed with a surgical termination of . ABD XR was performed and IUD was not seen in abdomen,; laparoacopy is not indicated. Risks, benefits, alternatives to the procedure were discussed. Risks include, but are not limited to, infection, bleeding, and damage to nearby tissue and organs including uterine perforation. She did consent to blood transfusion as indicated. Surgical consents were signed for suction D&C. Problem # 2: Bipolar 1 disorder, depressed (ICD-296.50) (SRJ72-R59.30) Orders: Referral to clinical psychologist ([facility]-[phone]) Psychiatry Consultation ([facility]-[id number]) TSH WITH REFLEX TO FT4 (CPT-23439, 04984) CBC AND PLATELETS w/o DIFF (CPT-18394) COVID19 Testing (CPT-23865) 84477 OV Est Detailed (CPT-70382) Contracts for safety Referral to psychiatry for medication management Hx of kieran, started on seroqule 50 mg po daily Anticipate medication adjustment with Psychiatry This visit lasted at least 30 minutes with greater than 50% of the time devoted to face to face case management discussion between the provider and the patient. Other Orders: CHLAM, NEISSERIA, TRICH DNA (CPT-78112, 93396) Xray Abdominal, Single Anteroposterior View (CPT-84862) Blood Type (CPT-90746) Patient Portal: [id number] ] Gender ID Identifies as Female P: 3 T: 3 A: 5 SAB: 4 IAB: 1 L: 3 LMP: 03/23/2020 EDC: 01/08/2021 Height: 63 (03/12/2020 10:57:30 AM) Weight: 113 Gonnorhea: negative (10/02/2019 2:00:46 PM) Chlamydia: negative (10/02/2019 2:00:46 PM) Initial US done: Normal (05/20/2020 1:32:06 PM) US: 6W 5D (05/20/2020 1:31:05 PM) Control Plan(per PISQ): IUD (Copper):Paragard Gonnorrhea: negative (10/02/2019 2:00:46 PM) Chlamydia: negative (10/02/2019 2:00:46 PM) Last Pap: ASC-US (10/02/2019 2:00:46 PM) PMH/PSH - Past Medical History Cardiovascular: positive: None Respiratory: positive: None Endocrine/Autoimmune: positive: None GI: positive: None : positive: None HEENT: positive: None Psych: positive: None Musculoskeletal: positive: Chronic back pain Derm: positive: None MRSA Hx?: No - Past Surgical History Ortho: positive: Other /DIAMOND GRINDER: positive: Dilation and currettage Social & Family Hx - Social History Does the pt smoke?: No Smoking Status: Never smoker Does the pt drink ETOH?: No Does the pt have substance abuse?: No - POLST Patient has POLST: No Meds/Allgy - Allergies Allergies/Adverse Reactions: Allergies Allergy/AdvReac Type Severity Reaction Status Date / Time Sulfa (Sulfonamide Allergy Severe Rash Verified 04/08/20 10:27 Antibiotics)
[~2020-06-18 10:16] MED LIST: ACETAMINOPHEN 1,000 MG/100 ML 100 ML IV ONE; CELECOXIB 100 MG CAPSULE PO ONE; DOXYCYCLINE 100 MG TABLET PO ONE; GABAPENTIN 400 MG CAPSULE ONE
[2020-06-18] MEDS ORDERED: LACTATED RINGERS 1,000 ML IV ONE ×2 (10:23→14:47)
--- NOTE | 2020-06-18 12:08 | ANESTHESIA ---
Pre-Anesthesia VS, & Labs - Diagnosis undesired , possible IUD misplacement - Procedure D and E, possible retrieval of IUD Vital Signs: Temp Pulse Resp BP Pulse Ox 36.5 C 104 H 12 113/75 97 06/18/20 10:24 06/18/20 10:24 06/18/20 10:24 06/18/20 10:24 06/18/20 10:24 Height: 5 ft 2 in Weight (kg): 51.5 kg Body Mass Index: 20.7 BMI Classification: Healthy weight - NPO >8 hours - Is Patient ?: Yes - Lab Results Current Lab Results: Laboratory Tests 06/18/20 10:45: POC Whole Bld Glucose 67 L Home Medications and Allergies Home Medications: Ambulatory Orders Quetiapine Fumarate [Seroquel] 1 tab PO DAILY 06/18/20 Quetiapine Fumarate [Seroquel] 1 tab PO DAILY 06/18/20 Allergies/Adverse Reactions: Allergies Allergy/AdvReac Type Severity Reaction Status Date / Time Sulfa (Sulfonamide Allergy Severe Rash Verified 04/08/20 10:27 Antibiotics) Anes History & Medical History - Anesthetic History Anesthesia Complications: reports: No previous complications - Medical History Cardiovascular: reports: None Pulmonary: reports: None Gastrointestinal: reports: None Urinary: reports: None Musculoskeletal: reports: Chronic back pain Endocrine/Autoimmune: reports: None Skin: reports: None Smoking Status: Never smoker History of Cancer?: No - Surgical History Gynecologic: Dilation and currettage Orthopedic: Other Exam General: Alert Dental: WNL Mallampati classification: I Thyromental Distance: greater than 6 cm Respiratory: Lungs clear Cardiovascular: Regular rate Plan Anesthesia Type: Total IV Consent for Procedure(s) Verified and Reviewed: Yes Code Status: Attempt Resuscitation ASA classification: 2-Mild systemic disease Is this case an emergency?: No
[2020-06-18] MEDS ORDERED: LIDOCAINE-MPF 2% 5 ML VIAL ONE (13:16)
[2020-06-18] MEDS ORDERED: PROPOFOL 500 MG/50 ML 500 MG/50 ML VIAL ONE (13:16)
[2020-06-18] MEDS ORDERED: fentaNYL 100 MCG/2 ML VIAL ONE (13:16)
[2020-06-18] MEDS ORDERED: MIDAZOLAM 2 MG/2 ML VIAL ONE (13:16)
[2020-06-18] MEDS ORDERED: SILVER NITRATE APPLICATOR TOP ONE ×4 (13:36→14:44)
[2020-06-18] MEDS ORDERED: BUPIVACAINE 0.5%-EPI 1:200000 PF 30 ML VIAL ONE (13:37)
[2020-06-18] MEDS ORDERED: OXYTOCIN 10 UNIT/ML VIAL ONE (13:42)
[2020-06-18] MEDS ORDERED: METHYLERGONOVINE 0.2 MG/ML VIAL ONE (13:42)
[2020-06-18] MEDS ORDERED: BUPIVACAINE 0.5%-EPI 1:200000 PF 30 ML VIAL SUBQ ONE ×2 (14:00)
[2020-06-18] MEDS ORDERED: KETAMINE 500 MG/10 ML VIAL ONE (14:06)
--- NOTE | 2020-06-18 14:50 | OPERATIVE REPORT ---
Operative Report - General Planned Procedure: Suction D&C Pre-Op Diagnosis: IUP at 10+6 wga; undesired Procedure Performed: Suction D&C Post Op Diagnosis: Same - Procedure Note Primary Surgeon: Deirdre Strong MD Anesthesia Provider: Khushi Lam CRNA Anesthesia Technique: Local, MAC Pathology: Products of conception IV Fluids (mL): 1,000 Estimated Blood Loss (mL): 150 Urine Output (mL): 0 (did not catheterize) Indications: Patient is a 29 yo at 10w6d ega by first trimester us here for suction D&C. product of contraceptive failure. Desires termination of . Confirms desire prior to procedure today. Findings: Uterus c/w 11 weeks size. Examination of pathology sample confirmed presence of 4 extremities, thorax, pelvis, and calvarium in retrieved PCOs. Complications: None - Other Other Information/Narrative: Risks benefits and alternatives to the procedure were reviewed. Consent was again confirmed. Patient was taken to the operating room where she underwent MAC anesthesia. She was positioned in dorsolithotomy position with legs resting in yellowfin stirrups. She was prepped and draped in the usual sterile fashion. Doxycycline 200 mg po given in Preop. Preoperative checklist was performed. Exam under anesthesia was performed. Speculum was placed in the vagina and the cervix was visualized. Single-tooth tenaculum was placed at the anterior cervical lip. Paracervical block was administered using a total of 30 cc of 0.5% bupivicaine lidocaine with epinephrine was injected at the 4:00 and 8:00 positions lateral to the portio of the cervix. The cervical os was serially dilated with Hegar dilators to accommodate the caliber of the 12 mm rigid suction catheter. The 12 mm rigid catheter was inserted into the cervical os and advanced to the fundus without suction activated. Suction was activated and uterine contents were removed. Tissue was cleared from cavity in 3 passes. An additional pass was completed with a 10 mm rigid catheter. Gentle sharp curettage was performed to confirm clearance of tissue from the uterine cavity. Pathology specimen was examined to confirm complete removal of tissue. Single toothed tenaculum was removed and good hemostasis was noted after application of silver nitrate. Procedure was well tolerated and without complication.
--- NOTE | 2020-06-18 15:02 | ANESTHESIA POST OP EVALUATION ---
Anesthesia Post Eval - Post Anesthesia Eval Vitals: Last Vital Signs Temp 36 C L 06/18/20 14:45 Pulse 71 06/18/20 14:45 Resp 13 06/18/20 14:45 BP 106/58 L 06/18/20 14:45 Pulse Ox 100 06/18/20 14:45 CV Function Including HR & BP: positive: Stable Pain Control: positive: Satisfactory Nausea & Vomiting: positive: Negative Mental Status: positive: Baseline Respiratory Status: Airway Patent Hydration Status: Satisfactory Anesthesia Complications: positive: None
[2020-06-18] MEDS ORDERED: ONDANSETRON 4 MG/2 ML VIAL IVP PRN (15:35)
[2020-06-18] MEDS ORDERED: DEXTROSE 50% ABBOJECT 25 GM/50 ML SYRINGE IVP ONE (15:54)
[2020-06-18 16:34] VITALS: BP 111/82
[2020-06-18 21:50] LABS: TRICHOMONAS VAGINALIS DNA NEGATIVE (NEGATIVE)
== END 2020-06-18 10:17 | disposition home or self-care (01) ==
LOC: SDS 10:16
PROVIDERS: ATTEND Obstetrics & Gynecology
PROC: 10A07Z6 Abortion of Products of Conception, Vacuum, Via Natural or Artificial Opening (ICD-10-PCS; principal; 2020-06-18 11:15)
DX: Z64.0 Problems related to unwanted pregnancy (principal); T83.89XA Other specified complication of genitourinary prosthetic devices, implants and grafts, initial encounter; F31.30 Bipolar disorder, current episode depressed, mild or moderate severity, unspecified; R45.851 Suicidal ideations
CPT/HCPCS: 59841; 87491; 87591; 87661; A9270; J0131; J7120

== ENCOUNTER 2024-03-14 08:00 | Outpatient (CLI) | payer MEDICAID ==
[2024-03-14 17:02] LABS: BILIRUBIN,URINE NEGATIVE (NEGATIVE); GLUCOSE, URINE (UA) NEGATIVE (NEGATIVE); KETONES,URINE (UA) NEGATIVE (NEGATIVE); LEUKOCYTE ESTERASE, URINE NEGATIVE (NEGATIVE); NITRITE,URINE NEGATIVE (NEGATIVE); OCCULT BLOOD,URINE NEGATIVE (NEGATIVE); PROTEIN,URINE NEGATIVE (NEGATIVE); UROBILINOGEN,URINE 0.2 (NORMAL) E.U./dL (NORMAL)
[2024-03-14 17:19] LABS: AMORPHOUS SEDIMENT,UR Moderate /LPF; BACTERIA,URINE Rare /HPF (None Seen); CLARITY,URINE HAZY (CLEAR); RBC,URINE None Seen /HPF (0-5); SQUAMOUS EPITHELIAL CELL,UR MOD Squamous (<= Few); WBC,URINE 0-3 /HPF (0-5)
== END 2024-03-14 23:59 | disposition home or self-care (01) ==
LOC: LAB.WC 08:00
PROVIDERS: ATTEND Obstetrics & Gynecology
DX: Z34.80 Encounter for supervision of other normal pregnancy, unspecified trimester (principal)
CPT/HCPCS: 81001; 87086

== ENCOUNTER 2024-10-28 09:01 | Inpatient (IN) ==
[2024-10-28] MEDS ORDERED: miSOPROStoL 200 MCG TABLET PR PRN (09:45)
[2024-10-28] MEDS ORDERED: OXYTOCIN 10 UNIT/ML VIAL IM PRN (09:45)
[2024-10-28] MEDS ORDERED: METHYLERGONOVINE 0.2 MG/ML VIAL IM PRN (09:45)
[2024-10-28] MEDS ORDERED: TERBUTALINE 1 MG/ML VIAL SUBQ PRN (09:45)
[2024-10-28] MEDS ORDERED: lidocaine 1% 20 ML MDV ID PRN (09:45)
[2024-10-28] MEDS ORDERED: TRANEXAMIC ACID IN NACL 1,000 MG/100 ML BAG IV PRN (09:45)
[2024-10-28] MEDS ORDERED: miSOPROStoL 200 MCG TABLET BC PRN (09:45)
[2024-10-28] MEDS ORDERED: fentaNYL 100 MCG/2 ML VIAL IVP PRN (09:45)
[2024-10-28] MEDS ORDERED: NIFEdipine 10 MG CAPSULE PO PRN (09:45)
[2024-10-28] MEDS ORDERED: hydrALAZINE INJ 20 MG/ML VIAL IVP PRN (09:45)
[2024-10-28] MEDS ORDERED: LABETALOL 20 MG/4 ML SYRINGE IVP PRN ×3 (09:45)
--- NOTE | 2024-10-28 09:56 | HISTORY & PHYSICAL EXAMINATION ---
Admit History Smoking Status: Former smoker Other Maternal History Other Maternal History: Patient is a 34-year-old presents today at 39 weeks 6 days gestation for contractions that been going on every 5 minutes for 1 to 2 hours. Small amount of bloody show. No leaking or bleeding. She has good movement. No SUMNER/BV or RUQP. No vaginal bleeding. Denies nausea and vomiting. Denies urinary urgency or dysuria. All other symptoms reviewed and were negative except per HPI. 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 Lives with partner, Michael. Four children at home, oldest is a boy, three younger daughters. H/o BPD, ADHD - sees [facility]. On lamotrigine. Stopped adderall in early . Has since restarted Adderall. H/o D&C x 4, retained placenta/PPH with last delivery. H/o PTD at 36wk with first delivery. Pre- Weight: 117lb BMI: 20.87 Blood type: A+ Antibody: negative CBC: H/H 12.0/35.5 plt 274 RUB:immune VZV:immune HBsAg: Neg HepC: NR RPR/AB-EIA:NR HIV:NR PAP: 04/09/24 NILM HPV+45 GC/CT:negative HSV: denies Genetic testing: [id number] Negative AFP- neg Covid: x 2, declines updated vaccine Flu: Declines FAS:ordered 05/18 Placenta: posterior without previa Cord: 3VC KAVITA: 12.6, 27.4% EFW: 106g, 39% 50gm OGCT: 137 TDAP: 08/09/24 mls Breast Pump: given mls Antibody screen: 3rd trimester H/H 10.8/33.0 PLT 224 3rd trimester RPR NR GBS: POSITIVE Delivery plan: spontaneous labor MOD: Contraception: Desires sterilization, [facility] consent signed. History of perforated paragard with bowel injury, adhesive dz. OB Visit Log Initial Weight: 117 lb HPI Current : Vital Signs Temperature 36.9 C 10/28/24 09:16 Pulse Rate 64 10/28/24 09:16 Respiratory Rate 17 10/28/24 09:16 Blood Pressure 116/74 10/28/24 09:16 Meds/Allgy Home Medications Ambulatory Orders Medication Instructions Recorded Confirmed dextroamphetamine-amphetamine 10 10 mg PO QDAY 4 10/24/24 mg tablet (Adderall) lamotrigine 100 mg tablet 100 mg PO QDAY 04/04/24 05/01/11 (Lamictal) vits no.126-ferrous fum tab PO QDAY 04/04/24 10/24/24 28 mg iron-folic acid 800 mcg tablet (Classic ) acetaminophen 325 mg tablet 325 mg PO Q6H PRN 08/22/24 10/24/24 (Tylenol) Allergies Allergies Allergy/AdvReac Type Severity Reaction Status Date / Time Sulfa (Sulfonamide Allergy Severe Rash Verified 06/26/24 13:26 Antibiotics) PFSH Active Problems All Active Problems (Updated 10/28/24 @ 09:48 by Ramsey Gay MD) Encounter for full-term uncomplicated delivery (Acute) 39 weeks gestation of (Acute) GBS (group B Streptococcus carrier), +RV culture, currently (Acute) Uterine size date discrepancy (Acute) Other bipolar disorder (Acute 03/12/20) ADHD (Acute 03/12/20) Encounter for supervision of normal in multigravida (Acute) Medical History Medical History (Updated 10/28/24 @ 09:48 by Ramsey Gay MD) Generalized anxiety disorder (01/28/16) Bipolar 1 disorder, depressed (06/16/20) ADHD (attention deficit hyperactivity disorder) Surgical History Surgical History Hx of laparoscopy Perforated IUD which was embedded in colon, surgery done at [facility] History of dilation and curettage D&C x 3 (three with termination, one with retained placenta) Family History Family History (Updated 04/04/24 @ 09:36 by Maggie Romeo LPN) Son Autism Uncle Fragile X syndrome Maternal grandmother Asthma Depressed High blood pressure Hyperlipidemia Maternal grandfather High blood pressure Hyperlipidemia Social History Social History (Updated 05/04/24 @ 12:55 by Mona Gasca, CLYDE, BSN) Smoking Status: Former smoker Do you dip or chew tobacco?: No Patient requests smoking cessation consult: No Initiate information on smoking cessation: No Living arrangement: At home Relationship: Do you feel safe in your home environment?: Yes Suffered physical, verbal, emotional, or financial abuse?: No History of Abuse: No ETOH Use: None Substance Use: denies use POLST Patient has POLST: No Review of Systems Status of ROS: 10 or more systems reviewed and unremarkable except as noted in history and below Physical Abdominal Exam Vital Signs: Temp Pulse Resp BP 36.9 C 64 17 116/74 10/28/24 09:16 10/28/24 09:16 10/28/24 09:16 10/28/24 09:16 Other Notes Labor Progress Note/Additional Text: General: Alert, oriented, no acute distress Head: Normal cephalic atraumatic Eyes: PERRLA, extraocular motions intact. Respiratory: Normal rate of respiration. No accessory muscle use, normal respiratory effort. Cardiovascular: Regular rate and rhythm Abdomen: Gravid, nontender, nondistended Extremities: Normal range of motion Neuro: Oriented x3. Normal movements Psych: Appropriate mood and affect. Normal judgment and insight SVE: FHT: 125 bpm baseline, moderate variability, accelerations present, no dec elerations. Reactive NST. Hondo: 2 to 4 minutes Plan for Labor Plan For Labor I expect patient to be DC'd or transferred within 96 hours.: Yes Conclusion/Plan Problem List (1) 39 weeks gestation of : Plan: Admit for term labor. 4 previous vaginal deliveries. 5 cm and rik regularly. Epidural at patient request. Start antibiotics for GBS sepsis prophylaxis. (2) GBS (group B Streptococcus carrier), +RV culture, currently : Plan: Ampicillin ordered.
[2024-10-28 10:12] LABS: BASOPHILS # (AUTO) 0.1 10^3/uL (0.0-0.1); EOSINOPHILS # (AUTO) 0.2 10^3/uL (0.0-0.7); EOSINOPHILS % (AUTO) 2.3 %; HCT - HEMATOCRIT 35.6 % (37.0-47.0); HGB - HEMOGLOBIN 11.4 g/dL (12.0-16.0); LYMPHOCYTES # (AUTO) 2.4 10^3/uL (1.5-3.5); LYMPHOCYTES % (AUTO) 24.7 %; MEAN CORPUSCULAR HEMOGLOBIN 29.5 pg (27.0-31.0); MEAN PLATELET VOLUME 11.1 fL (7.9-10.8); MONOCYTES # (AUTO) 0.8 10^3/uL (0.0-1.0); MONOCYTES % (AUTO) 7.7 %; NEUTROPHILS # (AUTO) 6.2 10^3/uL (1.5-6.6); NEUTROPHILS % (AUTO) 63.2 %; PLT - PLATELET COUNT 217 10^3/uL (130-450); RED BLOOD COUNT 3.87 10^6/uL (4.20-5.40); WHITE BLOOD COUNT 9.8 x10^3/uL (4.8-10.8)
[2024-10-28] MEDS: AMPICILLIN 2 GM in SODIUM CHLORIDE 0.9% MINIBAG 100 ML IV ONE (10:13)
[2024-10-28] MEDS: LACTATED RINGERS 1,000 ML IV PRN (10:14)
--- OUTSIDE RECORDS SUMMARY | 2024-10-28 10:24 | EXTERNAL MEDICAL SUMMARY RPT | Continuity of Care Document ---
Author Organization [facility] Address [address] [place] [id number] Phone Problems date description facility 2024-08-09 16:23 Encounter for superv ision of other normal , unspecified trimester [facility] 2024-08-09 16:23 Encounter for superv ision of normal , unspecified, unspecified trimester [facility] 2024-08-10 00:02 Encounter for immunization [facility] 2024-08-10 00:02 Encounter for superv ision of other normal , unspecified trimester [facility] 2024-08-10 00:04 Encounter for superv ision of other normal , unspecified trimester [facility] 2024-08-10 00:04 Encounter for superv ision of normal , unspecified, unspecified trimester [facility] 2024-08-14 09:27 Encounter for superv ision of other normal , unspecified trimester [facility] 2024-09-06 00:02 Encounter for immunization [facility] 2024-10-03 11:17 Encounter for screeni ng for Streptococcus B [facility] 2024-10-03 13:03 Encounter for screeni ng for Streptococcus B [facility] 2024-10-04 00:03 Encounter for screeni ng for Streptococcus B [facility] 2024-10-04 10:16 Encounter for screeni ng for Streptococcus B [facility] 2024-10-04 10:26 Encounter for screeni ng for Streptococcus B [facility] 2024-10-08 11:25 Uterine size-date discrepancy, unspecified trimester [facility] 2024-10-10 12:11 Uterine size-date discrepancy, unspecified trimester [facility] 2024-10-10 12:14 Uterine size-date discrepancy, unspecified trimester [facility] 2024-10-12 15:48 Uterine size-date discrepancy, unspecified trimester [facility] 2024-10-13 00:02 Uterine size-date discrepancy, unspecified trimester [facility] 2024-10-15 11:04 Uterine size-date discrepancy, third trimester [facility] 2024-10-28 10:12 Streptococcus B carrier state c omplicating [facility] 2024-10-28 10:12 39 weeks gestation of [facility] Results/Labs test date facility value unit notes Result panel 1 BILIRUBIN,TOTAL 2024-08-09 17:33 [facility] 0.3 mg /dl As of December 2022 testing method has changed, this may include reference ranges. CREATININE 2024-08-09 17: [facility] 0.5 mg/dl As of December 2022 testing method has changed, this may include reference ranges. ALBUMIN/GLOBULIN RATIO 2024-08-09 17: [facility] 1.6 (missing) (missing) ALT ALANINE AMINOTRANSFERASE 2024-08-09 17: [facility] 10 iu/l As of December 2022 testing method has changed, this may include reference ranges. MEAN PLATELET VOLUME 2024-08-09 17: [facility] 10.7 fl (missing) HGB - HEMOGLOBIN 2024-08-09 17: [facility] 10.8 g /dl (missing) CHLORIDE 2024-08-09 17:33 [facility] 105 mmol/l As of December 2022 testing method has changed, this may include reference ranges. GLUCOSE,1H PP 50GM DOSE 2024-08-09 17:33 [facility] 116 mg/dl Social History date description facility
[2024-10-28] MEDS: lamoTRIgine 100 MG TABLET PO SCH (11:29)
--- NOTE | 2024-10-28 12:40 | PHARMACY PROGRESS NOTE ---
Best Possible Medication History Admit Date and Time: 10/28/24 0945 Home Medications Medication Instructions Recorded Confirmed Type dextroamphetamine-amphetamine 10 10 mg PO .BIW 4 10/28/24 History mg tablet (Adderall) lamotrigine 100 mg tablet 100 mg PO QDAY 04/04/2410/18 History (Lamictal) vits no.126-ferrous fum 1 tab PO QDAY 4 10/28/24 History 28 mg iron-folic acid 800 mcg tablet (Classic ) acetaminophen 325 mg tablet 325 mg PO Q6H PRN fever or pain 08/22/24 10/28/24 History (Tylenol) Processed by: Pharmacy Medications reviewed in ED?: No Medication History completed: Yes Patient Interview: Completed Secondary Source(s): Pharmacy records and Insurance records [facility] Statement: As the person ultimately responsible for medication therapy, providers are able to order a medication from an existing home medication list in [facility] via the "Reconcile Routine" prior to Confirmation of that medication by account support specialist. Such practice is discouraged except when the physician, in their clinical judgment, deems that a medical need exists for a medication without regard to previous use.
[2024-10-28] MEDS ORDERED: ROPIVACAINE 0.2% 200 MG/100 ML BAG EP ONE (13:36)
[2024-10-28] MEDS ORDERED: LIDOCAINE 2%-EPI 1:100000 20 ML MDV ONE (13:36)
[2024-10-28] MEDS: LACTATED RINGERS 1,000 ML IV SCH (13:40)
[2024-10-28] MEDS: LACTATED RINGERS 500 ML IV ONE (13:40)
[2024-10-28] MEDS: AMPICILLIN 1 GM in SODIUM CHLORIDE 0.9% MINIBAG 100 ML IV SCH (14:18)
[2024-10-28] MEDS ORDERED: NALOXONE 0.4 MG/ML VIAL IVP PRN (14:35)
[2024-10-28] MEDS ORDERED: NALBUPHINE 10 MG/ML AMP IVP PRN (14:35)
[2024-10-28] MEDS ORDERED: METOCLOPRAMIDE 10 MG/2 ML VIAL IVP PRN (14:35)
[2024-10-28] MEDS ORDERED: ePHEDrine 50 MG/ML VIAL IVP PRN (14:35)
[2024-10-28] MEDS ORDERED: ROPIVACAINE 0.2% 200 MG/100 ML BAG EP PRN (14:35)
[2024-10-28] MEDS ORDERED: diphenhydrAMINE INJ 50 MG/ML VIAL IVP PRN (14:35)
--- NOTE | 2024-10-28 14:37 | ANESTHESIA PROCEDURE NOTE ---
Pre-Anesthesia VS, & Labs Diagnosis Surgical Diagnosis:: w6d active labor Procedure Procedure: placement of labor epidural Vitals Vital Signs: Temp Pulse Resp BP 36.9 C 64 17 116/74 10/28/24 09:16 10/28/24 09:16 10/28/24 09:16 10/28/24 09:16 Height (in): 5 ft 2 in Weight (kg): 65 kg Body Mass Index: 26.2 BMI Classification: Overweight NPO Last Fluid Intake: clears Is Patient ?: Yes Estimated Due Date:: 10/28/24 Lab Results Current Lab Results: Laboratory Tests 10/28/24 10:00: WBC 9.8, RBC 3.87 L, Hgb 11.4 L, Hct 35.6 L, MCV 92.0, MCH 29.5, MCHC 32.0, RDW 14.0, Plt Count 217, MPV 11.1 H, Neut # (Auto) 6.2, Lymph # (Auto) 2.4, Butler # (Auto) 0.8, Eos # (Auto) 0.2, Baso # (Auto) 0.1, Absolute Nucleated RBC 0.00, Nucleated RBC % 0.0, Blood Type A POSITIVE, Antibody Screen NEGATIVE Lab results reviewed: Yes 10/28/24 10:00 Meds/Allgy Home Medications Ambulatory Orders Medication Instructions Recorded Confirmed dextroamphetamine-amphetamine 10 10 mg PO .BIW 4 10/28/24 mg tablet (Adderall) lamotrigine 100 mg tablet 100 mg PO QDAY 04/04/2410/18 (Lamictal) vits no.126-ferrous fum 1 tab PO QDAY 4 10/28/24 28 mg iron-folic acid 800 mcg tablet (Classic ) acetaminophen 325 mg tablet 325 mg PO Q6H PRN fever or pain 08/22/24 10/28/24 (Tylenol) Allergies Allergies Allergy/AdvReac Type Severity Reaction Status Date / Time Sulfa (Sulfonamide Allergy Severe Rash Verified 06/26/24 13:26 Antibiotics) PFSH Active Problems All Active Problems Encounter for full-term uncomplicated delivery (Acute) 39 weeks gestation of (Acute) GBS (group B Streptococcus carrier), +RV culture, currently (Acute) Uterine size date discrepancy (Acute) Other bipolar disorder (Acute 03/12/20) ADHD (Acute 03/12/20) Encounter for supervision of normal in multigravida (Acute) Medical History Medical History Generalized anxiety disorder (01/28/16) Bipolar 1 disorder, depressed (06/16/20) ADHD (attention deficit hyperactivity disorder) Surgical History Surgical History Hx of laparoscopy Perforated IUD which was embedded in colon, surgery done at [facility] History of dilation and curettage D&C x 3 (three with termination, one with retained placenta) Family History Family History Son Autism Uncle Fragile X syndrome Maternal grandmother Asthma Depressed High blood pressure Hyperlipidemia Maternal grandfather High blood pressure Hyperlipidemia Social History Social History Smoking Status: Never smoker Do you dip or chew tobacco?: No Patient requests smoking cessation consult: No Initiate information on smoking cessation: No Living arrangement: At home Relationship: Do you feel safe in your home environment?: Yes Suffered physical, verbal, emotional, or financial abuse?: No History of Abuse: No ETOH Use: None Substance Use: denies use POLST Patient has POLST: No Anesthesia Exam (Expanded) Exam General: Alert and Mild distress Dental: WNL Mouth Openin Fingerbreadth Neck Mobility: Normal Mallampati classification: II Thyromental Distance: 4-6 cm Other Exam Comments:: Pt reports a history of back injury in the lower lumbar area when she was 16; no surgery/no hardware, had an epidural 12 years ago without difficulty. Understands possibility of back pain after epidural; wishes to proceed. Exam Exam Vital Signs: Vital Signs x48h Temp Pulse Resp BP 10/28/24 09:16 36.9 C 64 17 116/74 Plan Plan Anesthesia Type: Epidural Consent for Procedure(s) Verified and Reviewed: Yes Code Status: Attempt Resuscitation ASA Classification ASA classification: 2-Mild systemic disease Is this case an emergency?: No
--- NOTE | 2024-10-28 15:13 | PROVIDER PROGRESS NOTE ---
Labor Progress Note Labor Progress Note Labor Progress Note/Additional Text: Patient 6/80/-2, FHT 125 beats minute baseline, moderate variability, accelerations present, occasional deceleration, appear to be variable. Related to hypotension after epidural. Agreed to amniotomy was performed with a small amount of meconium tinged fluid. Patient tolerated well. Has had greater than 4 hours of ampicillin for GBS prophylaxis. Anticipate .
[2024-10-28] MEDS: ONDANSETRON 4 MG/2 ML VIAL IVP PRN (17:02)
[2024-10-28] MEDS ORDERED: ePHEDrine 50 MG/ML VIAL IVP ONE (17:05)
[2024-10-28] MEDS ORDERED: PHENYLEPHRINE HCL 0.5 MG/5 ML AMPULE ONE (17:05)
[2024-10-28] MEDS ORDERED: GLYCOPYRROLATE 1 MG/5 ML VIAL ONE (17:15)
[2024-10-28] MEDS: OXYTOCIN/SODIUM CHLORIDE 500 ML IV PRN (18:40)
[2024-10-28] MEDS ORDERED: CALCIUM CARBONATE CHEW 500 MG TABLET PO PRN (18:48)
[2024-10-28] MEDS ORDERED: SIMETHICONE CHEW 80 MG TABLET PO PRN (18:48)
[2024-10-28] MEDS ORDERED: WITCH HAZEL/GLYCERIN 1 PAD TOP PRN (18:48)
[2024-10-28] MEDS ORDERED: ONDANSETRON 4 MG/2 ML VIAL IVP PRN (18:48)
--- NOTE | 2024-10-28 18:53 | DELIVERY NOTE ---
Delivery Note Labor Labor: positive Spontaneous and Augmented by ARM Delivery Method Delivery Method: positive Spontaneous vaginal delivery Presentation Presentation: positive Vertex Amniotic Fluid Description Amniotic Fluid Description: positive Light meconium : positive Placed in direct skin contact with mother Cord Cord: positive 3 vessels Placenta Placenta: positive Intact Post Delivery Events Post Delivery Events: positive No post delivery events Delivery Comments (Free Text/Narrative) Delivery Comments (Free Text/Narrative): Preoperative Diagnoses 39 weeks gestation Term labor GBS positive Meconium stained fluid Postoperative Diagnoses Same Delivered live griffiths Status post spontaneous vaginal delivery Summary Patient presented at 39 weeks 6 days gestation rik regularly with a cervical exam at 5 cm. She progressed to 6 cm on her own, received antibiotics for GBS sepsis prophylaxis. Epidural for pain control. After amniotomy, She had light meconium stained fluid. Sheprogressed on her own until complete and ready to push. Delivery Summary: Patient was placed in the dorsal lithotomy position. Upon maternal pushing the head was delivered atraumatically followed by the anterior shoulder, posterior shoulder, then the remainder of the infant's body. A female was delivered with APGARS of 8 at 1 minute and 9 at 5 minutes. The was placed on its mother's chest . After the cord finished pulsating, the umbilical cord was clamped times two and cut. The placenta delivered intact with three vessel cord. Placenta was not sent to pathology. Thirty units of Pitocin were added to the IV fluid and allowed to run freely. Uterine massage was performed until uterus was deemed firm. Upon inspection of the perineum, vagina and cervix were intact. Upon re- inspection the patient was hemostatic. Uterus again massaged and found to be firm. Needle and sponge counts were correct. Patient was stable and allowed to recover in L&D room. was stable and remained in room with mother. weight is pending at this time.
[2024-10-28] MEDS: SODIUM CHLORIDE FLUSH 0.9% 10 ML SYRINGE IVP SCH (19:30)
[2024-10-28] MEDS: LACTATED RINGERS 1,000 ML IV ONE (19:32)
[2024-10-28] MEDS: IBUPROFEN 600 MG TABLET PO SCH (21:23)
[2024-10-28] MEDS: ACETAMINOPHEN 500 MG TABLET PO SCH (21:23)
[2024-10-28] MEDS ORDERED: ACETAMINOPHEN 500 MG TABLET PO SCH (22:00)
[2024-10-29] MEDS ORDERED: IBUPROFEN 600 MG TABLET PO SCH
--- NOTE | 2024-10-29 11:18 | PROVIDER PROGRESS NOTE ---
Subjective Prog Note Date Prog Note Date: 10/29/24 Prog Note Time: 11:48 Subjective Subjective: Overall feeling well. Reports pain is well controlled. Ambulating in room and urinating without difficulty. Tolerating regular diet. She is . Baby is doing well. Reports bleeding is minimal. Would like to discharge tomorrow. Discussed that if she is still interested in sterilization procedure, we can arrnage at her visit vs discussing alternative options. Current Medications Current Medications Current Medications: Current Medications Generic Name Dose Route Start Last Admin Trade Name Freq PRN Reason Stop Dose Admin Acetaminophen 1,000 mg 10/28/24 21:00 10/29/24 09:21 Acetaminophen 500 Mg Tablet PO 1,000 mg Q8HR LETICIA Administration Calcium Carbonate/Glycine 500 mg 10/28/24 18:48 Calcium Carbonate Chew 500 Mg Tablet PO TID PRN Heartburn Hydralazine HCl 5 - 10 mg 10/28/24 09:45 Hydralazine Inj 20 Mg/Ml Vial IVP Q20M PRN SBP> or= 160 OR DBP> or= 110 Protocol Oxytocin/Sodium Chloride 500 mls @ 999 mls/hr 10/28/24 09:45 10/28/24 19:15 Pitocin/Sodium Chloride IV Infused PRN PRN Titration POST- HEMORR PREVENTION Protocol 999 MILLIUNIT/MIN Ibuprofen 600 mg 10/28/24 21:00 10/29/24 09:22 Ibuprofen 600 Mg Tablet PO 600 mg Q6HR LETICIA Administration Labetalol HCl 20 - 80 mg 10/28/24 09:45 Labetalol 20 Mg/4 Ml Syringe IVP Q10M PRN SBP> or= 160 OR DBP> or= 110 Protocol Labetalol HCl 20 mg 10/28/24 09:45 Labetalol 20 Mg/4 Ml Syringe IVP .ONCE PRN SBP> or= 160 OR DBP> or= 110 Protocol Labetalol HCl 20 - 40 mg 10/28/24 09:45 Labetalol 20 Mg/4 Ml Syringe IVP Q10M PRN SBP> or= 160 OR DBP> or= 110 Protocol Lamotrigine 100 mg 10/28/24 11:00 10/29/24 10:14 Lamotrigine 100 Mg Tablet PO 100 mg DAILY LETICIA Administration Nifedipine 10 - 20 mg 10/28/24 09:45 Nifedipine 10 Mg Capsule PO Q20M PRN SBP> or= 160 OR DBP> or= 110 Protocol Simethicone 80 mg 10/28/24 18:48 Simethicone Chew 80 Mg Tablet PO TID PRN Gas Sodium Chloride 10 ml 10/28/24 09:45 Sodium Chloride Flush 0.9% 10 Ml Syringe IVP PRN PRN NEEDED PER PROVIDER ORDERS Witch Faviola/Glycerin 1 pad 10/28/24 18:48 Witch Faviola/Glycerin 1 Pad TOP PRN PRN ITCHING Objective Vital Signs/Intake & Output Reviewed Vital Signs: Yes Vital Signs: Vital Signs x48h Temp Pulse Resp BP 10/29/24 09:41 98.2 F 74 16 102/57 L Intake & Output: Intake & Output 10/26/24 10/27/24 10/28/24 10/29/24 23:59 23:59 23:59 23:59 Intake Total 2640 / 2640 350 / 350 Output Total 800 / 800 Balance 1840 / 1840 350 / 350 Weight (kg) 143 lb 4.807 oz Objective Comments/Other: Gen: NAD Chest: non labored respirations Abd: soft, fundus firm at umbilicus, no fundal tenderness Ext: no LE edema, no evidence of DVT Lab Results 10/28/24 10:00 Other Labs: Lab Results x24hrs 10/28/24 Range/Units 10:00 Blood Type A POSITIVE Antibody Screen NEGATIVE Assessment/Plan Problem List (1) care and examination of lactating mother: Impression: - Continue routine care. Anticipate discharge home tomorrow. - Discuss further laparoscopic sterilization vs alternatives at followup outpatient. (2) Other bipolar disorder: Impression: - Plan for close follow up .
[2024-10-29] MEDS: SODIUM CHLORIDE FLUSH 0.9% 10 ML SYRINGE IVP PRN (17:22)
[2024-10-29 20:32] VITALS: O2SAT 97
[2024-10-30 08:48] VITALS: BP 98/52; TEMP 97.9
--- NOTE | 2024-10-30 12:36 | Discharge Summary ---
Discharge Summary Admit Date: 10/28/24 Discharge Date: 10/30/24 Discharging Provider: Ramsey Gay MD Code Status: Attempt Resuscitation DIAGNOSES Admission Diagnoses: Term labor 39 weeks gestation GBS positive Discharge Diagnoses with Status of Each Condition: Status post spontaneous vaginal delivery Delivery of live griffiths HPI History of Present Illness: Subjective Patient reports she is doing well. Lochia appropriate. Denies heavy bleeding. Ambulating. Pelvic and abdominal pain well-controlled. Tolerating oral intake. Diet: Regular. Voiding without difficulty. Passing flatus. Denies BM. Patient is bonding with baby in room Breast feeding going well. Denies feeling lightheaded, dizzy or excessively fatigued. Objective General: Alert, oriented, no apparent distress. Cardiovascular: Regular rate. Regular rhythm. Lungs: No increased work of breathing. Abdomen: Uterus firm. Below umbilicus. No guarding or rebound. Extremities: No pain on palpation. No cords palpated. Distal pulses intact. HOSPITAL COURSE Hospital Course: Patient is admitted for labor and rik regularly. She was 6 cm, received an epidural, ampicillin for GBS sepsis prophylaxis. Amniotomy was performed with moderate mount of meconium stained fluid. Delivery was unremarkable and had an unremarkable recovery. She was discharged with her on day 2. ALLERGIES Allergies Allergy/AdvReac Type Severity Reaction Status Date / Time Sulfa (Sulfonamide Allergy Severe Rash Verified 06/26/24 13:26 Antibiotics) MEDICATIONS Ambulatory Orders Medication Instructions Recorded Confirmed dextroamphetamine-amphetamine 10 10 mg PO .BIW 4 10/28/24 mg tablet (Adderall) lamotrigine 100 mg tablet 100 mg PO QDAY 04/04/2410/18 (Lamictal) vits no.126-ferrous fum 1 tab PO QDAY 4 10/28/24 28 mg iron-folic acid 800 mcg tablet (Classic ) acetaminophen 325 mg tablet 325 mg PO Q6H PRN fever or pain 08/22/24 10/28/24 (Tylenol) PHYSICAL EXAM AT DISCHARGE Vital Signs: Vital Signs x48h Temp Pulse Resp BP Pulse Ox 10/30/24 08:43 36.6 C 68 16 98/52 L 97 LABS 10/28/24 10:00 FOLLOW UP Follow Up: With [facility] women's care in 1 week TIME SPENT Time Spent in Discharge (Minutes): 20 Discharge Plan Discharge Patient Disposition: Home, Self Care Prescriptions: Continued Classic 28 mg iron- 800 mcg tablet 1 tab PO QDAY dextroamphetamine-amphetamine [Adderall] 10 mg tablet 10 mg PO .BIW Patient Comments: TAKING IT TWICE A WEEK SINCE SHE HAS BEEN lamotrigine [Lamictal] 100 mg tablet 100 mg PO QDAY acetaminophen [Tylenol] 325 mg tablet 325 mg PO Q6H PRN (Reason: fever or pain) Activity Restrictions: Activity as Tolerated Diet: Regular Print Language: Italian Patient Instructions: Vaginal After, Childbirth Call HC Provider After, Depression Follow-up Care: Ramsey Gay MD [Primary Care Provider] - (11/[address] Andrade)
--- NOTE | 2024-10-30 15:36 | Labor Flowsheet ---
Labor Flowsheet Datetime Report Generated by CPN: 10/30/2024 15:35 Datetime: 10/30/2024 08:47 VITAL SIGNS NBP Sys/Farideh/Mean (mmHg): 98 : 52 : 61 Pulse: 56 Datetime: 10/30/2024 08:45 SpO2 (%): 97 Datetime: 10/28/2024 20:25 Stage of : Pain Location: Abdomen Pain Goal: 4 Pain Relief Measures: Comfort Measures Datetime: 10/28/2024 20:01 Respirations: 18 Temperature (C): 37.2 Temperature Route: Oral Datetime: 10/28/2024 19:13 PAIN Pain Scale: 0 Pain Presence: None/Denies Pain Type: N/A Datetime: 10/28/2024 18:45 Membranes Ruptured Date/Time: 10/28/2024 15:00 Datetime: 10/28/2024 18:44 Stage 2 Comments: placenta/pit Datetime: 10/28/2024 18:39 UTERINE ACTIVITY Monitor Mode: External Frequency (min): 2-3 Duration (sec): 60-90 Pattern: Normal: <= 5 Contractions in 10 Minutes ASSESSMENT A Monitor Mode: External US FHR Baseline Rate : 130 Variability: Moderate 6-25 bpm Accelerations: 15X15 Decelerations: Early Category: Category I Datetime: 10/28/2024 18:35 STAGE 2 Pushing: Urge to Push Pushing Position: Pushing with Contractions Pushing Progress: Descent with Pushing Datetime: 10/28/2024 18:30 LaborFlag: Labor Datetime: 10/28/2024 18:29 VAGINAL EXAM Dilatation (cm): 10.0 Effacement (%): 100 Station: 2 Exam by: DrKimberly Victor Hugo Datetime: 10/28/2024 18:06 Patient Care Comments: in and out cath 200ml perry Datetime: 10/28/2024 17:56 MEDICATIONS Medication Comments: new bag of LR hung Datetime: 10/28/2024 17:04 Anesthesia Comments: 2L per NC started per [employer] request Datetime: 10/28/2024 16:15 Resting Tone (Palpate): Relaxed Patient Position/Activity: Right Lateral Datetime: 10/28/2024 15:45 Quality: Strong FHR Baseline Changes: No Baseline Change Oxygen Method: Room Air Datetime: 10/28/2024 15:14 Pain Coping: Talking Through Contractions Pain Assessment Comments: pt feeling tightening but no pain Datetime: 10/28/2024 15:00 Membranes Rupture Method: Artificial Amniotic Fluid Color: Light Meconium Amniotic Fluid Amount: Moderate Datetime: 10/28/2024 14:59 COMMUNICATION Communication: Provider at Bedside Communication Comments: victor hugo Datetime: 10/28/2024 14:30 Comments: possiable variables. interupted strip. Datetime: 10/28/2024 14:02 Epidural Procedure: Test Dose Datetime: 10/28/2024 13:40 PROCEDURE TIME OUT Procedure Verify: Correct Patient Identity; Accurate Procedure Consent Form; Agreement on Procedure to be Done; Correct Patient Position; Addressed Need to Administer Antibiotics or Fluids for Irrigation; Safety Precautions Based on Patient History or Medication Use ANESTHESIA Anesthesia Plans: Epidural Epidural Positioning: Sitting Datetime: 10/28/2024 13:37 Comfort Measures: Breathing/Relaxation Datetime: 10/28/2024 13:33 Vaginal Bleeding: None Cervix, Consistency: Soft Cervix, Position: Anterior Datetime: 10/28/2024 13:21 PATIENT CARE IV/Blood Work: IV Bolus Started
== END 2024-10-30 15:34 | disposition home or self-care (01) | DRG 807 ==
LOC: WFO 09:01 → FBP 09:04
PROVIDERS: ADMIT Obstetrics & Gynecology; ATTEND Obstetrics & Gynecology
DX: F31.9 Bipolar disorder, unspecified; Z3A.39 39 weeks gestation of pregnancy; O99.344 Other mental disorders complicating childbirth; O99.824 Streptococcus B carrier state complicating childbirth; O77.0 Labor and delivery complicated by meconium in amniotic fluid; Z87.891 Personal history of nicotine dependence; F90.9 Attention-deficit hyperactivity disorder, unspecified type; Z37.0 Single live birth